=== PATIENT | male | born 1955 | race Caucasian/White ===

== ENCOUNTER 2019-01-13 09:48 | Inpatient (IN) ==
[~2019-01-13 09:48] MED LIST: ENOXAPARIN 40 MG/0.4 ML SYRINGE SQ SCH
[2019-01-13] MEDS ORDERED: IPRATROPIUM/ALBUTEROL 3 ML AMPUL.NEB NEB ONE (09:50)
[2019-01-13] MEDS ORDERED: 0.9 % SODIUM CHLORIDE 1,000 ML IV ONE ×2 (10:01→10:34)
--- NOTE | 2019-01-13 10:05 | Emergency Department Note ---
SOB HPI - General Chief Complaint: Shortness of Breath/Dyspnea Stated Complaint: shortness of breath Time Seen by Provider: 01/13/19 10:01 Source: patient Mode of arrival: ambulatory Limitations: no limitations - History of Present Illness 63-year-old male with a 3-4-day history of shortness of breath cough congestion. He does have a history of COPD as well as heart problems and is not on home oxygen. When he came in today his oxygen saturations were in the 80s and he was given a DuoNeb treatment which did help. Denies nausea vomiting diarrhea but he does have a fever. He did not get a flu shot - Related Data Home Medications Medication Instructions Recorded Confirmed Albuterol Sulfate [Proair Hfa] 8.5 gm IH QDAY PRN 01/13/19 01/13/19 Aspirin [Justin Chewable Aspirin] 81 mg PO QDAY 01/13/19 01/13/19 Atorvastatin [Lipitor] 40 mg PO ONCE 01/13/19 01/13/19 Clindamycin [Cleocin] 300 mg PO QID 01/13/19 01/13/19 Lisinopril [Zestril] 20 mg PO QDAY 01/13/19 01/13/19 Metoprolol Succinate [Kapspargo 25 mg PO QDAY 01/13/19 01/13/19 Sprinkle] Umeclidinium [place] [Incruse 62.5 mcg IH QDAY 01/13/19 01/13/19 Ellipta] Allergies Allergy/AdvReac Type Severity Reaction Status Date / Time Penicillins Allergy Severe Anaphylaxis Verified 01/02/19 12:25 Iodinated Contrast- Oral and Allergy Intermediate Irritable Verified 01/02/19 12:25 IV Dye prednisone Allergy Agitated Verified 01/13/19 09:51 Review of Systems All systems ED: reviewed and negative except as stated. Past Medical History - Past Medical History Attestation: Yes: The following information was validated with the patient. Medical history: Reports: cancer (Non-Hodgkin's lymphoma), CHF, coronary artery disease, hyperlipidemia, hypertension Surgical history ED: Reports: coronary bypass (CABG), herniorrhaphy, pacemaker/AICD - Social History smoking status: Never smoker Alcohol use: Reports: None Drug use: Reports: none Physical Exam Some respiratory distress/failure requiring oxygen. Normocephalic atraumatic. Conjunctive are clear sclerae nonicteric. No nasal discharge but some audible congestion. Oropharynx is pink and moist. Neck is supple without lymphadenopathy thyromegaly or carotid bruit. Heart is regular rate and rhythm no murmur appreciated. Lungs are clear to auscultation on the left but the right has rales and rhonchi especially the upper masters. Notable end expiratory wheeze. Patient cannot speak in full sentences. Wearing mask oxygen. Abdomen soft nontender nondistended. Normoactive bowel sounds. No pedal edema. +2 radial pulse. Alert oriented Limitations: no limitations Course Vital Signs Temperature 101.0 F H 01/13/19 09:48 Pulse Rate 99 H 01/13/19 09:48 Respiratory Rate 30 H 01/13/19 09:48 Blood Pressure 130/79 01/13/19 09:48 Pulse Oximetry (%) 80 L 01/13/19 09:48 Temperature 101.0 F H 01/13/19 09:48 Pulse Rate 81 01/13/19 10:46 Respiratory Rate 32 H 01/13/19 10:46 Blood Pressure 118/72 01/13/19 10:46 Pulse Oximetry (%) 97 01/13/19 10:46 Shortness of Breath/Dyspnea - Lab Data Lab results reviewed: Yes I reviewed the patient's lab results. Result diagrams: 01/13/19 10:01 01/13/19 10:01 Lab Results 01/13/19 01/13/19 01/13/19 Range/Units 10:01 10:01 10:01 WBC 5.9 (4.5-11.0) K/mcL RBC 4.38 L (4.50-5.90) M/mcL Hgb 13.4 L (13.5-16.5) g/dL Hct 40.5 L (41.0-55.0) % MCV 92.6 (80.0-100.0) fL MCH 30.7 (26.0-34.0) pg MCHC 33.1 (31.0-36.0) g/dL RDW 14.4 (11.5-14.5) % Plt Count 163 (140-440) K/mcL MPV 8.0 (7.4-10.4) fL Gran % 72.4 (38.0-78.0) % Lymph % (Auto) 20.4 (15.5-49.0) % [place] % (Auto) 6.9 (1.0-12.0) % Eos % (Auto) 0.1 (0.0-7.0) % Baso % (Auto) 0.2 (0.0-2.0) % Gran # 4.2 (1.8-8.0) K/mcL Lymph # (Auto) 1.2 L (1.5-4.8) K/mcL [place] # (Auto) 0.4 (0.1-0.9) K/mcL Eos # (Auto) 0 (0.0-0.7) K/mcL Baso # (Auto) 0 (0.0-0.3) K/mcL D-Dimer (0.00-0.40) ug/ml VBG Lactic Acid 1.0 (0.5-2.0) mmol/L Sodium 132 L (133-145) mmol/L Potassium 4.2 (3.3-5.1) mmol/L Chloride 95 L (96-108) mmol/L Carbon Dioxide 21 L (22-30) mmol/L Anion Gap 16.0 (8-16) BUN 16 (8-23) mg/dl Creatinine 1.2 (0.7-1.2) mg/dl GFR Calculation 65 Glucose 132 H (70-105) mg/dL Calcium 8.4 L (8.6-10.4) mg/dl Magnesium 1.7 (1.6-2.5) mg/dL Total Bilirubin 0.5 (0.0-1.0) mg/dL AST 26 (0-37) U/l ALT 15 (0-40) U/l Alkaline Phosphatase 65 (39-117) U/L Troponin T (0-0.03) ng/ml NT-Pro-B Natriuret Pep 804.3 H (0-125) pg/ml Total Protein 7.8 (5.9-8.4) gm/dL Albumin 4.1 (3.2-5.2) gm/dL Globulin 3.7 (2.2-3.7) gm/dL Albumin/Globulin Ratio 1.1 (1.0-2.3) Lipase 32 (7-60) U/L Procalcitonin (<0.10) ng/mL 01/13/19 01/13/19 01/13/19 Range/Units 10:01 10:01 10:02 WBC (4.5-11.0) K/mcL RBC (4.50-5.90) M/mcL Hgb (13.5-16.5) g/dL Hct (41.0-55.0) % MCV (80.0-100.0) fL MCH (26.0-34.0) pg MCHC (31.0-36.0) g/dL RDW (11.5-14.5) % Plt Count (140-440) K/mcL MPV (7.4-10.4) fL Gran % (38.0-78.0) % Lymph % (Auto) (15.5-49.0) % [place] % (Auto) (1.0-12.0) % Eos % (Auto) (0.0-7.0) % Baso % (Auto) (0.0-2.0) % Gran # (1.8-8.0) K/mcL Lymph # (Auto) (1.5-4.8) K/mcL [place] # (Auto) (0.1-0.9) K/mcL Eos # (Auto) (0.0-0.7) K/mcL Baso # (Auto) (0.0-0.3) K/mcL D-Dimer 3.88 H (0.00-0.40) ug/ml VBG Lactic Acid (0.5-2.0) mmol/L Sodium (133-145) mmol/L Potassium (3.3-5.1) mmol/L Chloride (96-108) mmol/L Carbon Dioxide (22-30) mmol/L Anion Gap (8-16) BUN (8-23) mg/dl Creatinine (0.7-1.2) mg/dl GFR Calculation Glucose (70-105) mg/dL Calcium (8.6-10.4) mg/dl Magnesium (1.6-2.5) mg/dL Total Bilirubin (0.0-1.0) mg/dL AST (0-37) U/l ALT (0-40) U/l Alkaline Phosphatase (39-117) U/L Troponin T < 0.01 (0-0.03) ng/ml NT-Pro-B Natriuret Pep (0-125) pg/ml Total Protein (5.9-8.4) gm/dL Albumin (3.2-5.2) gm/dL Globulin (2.2-3.7) gm/dL Albumin/Globulin Ratio (1.0-2.3) Lipase (7-60) U/L Procalcitonin < 0.10 (<0.10) ng/mL ABG shows pH 7.42 PCO2 of 36 PO2 65 on 4 L mask flu swab negative - Radiology Data Radiology results reviewed: Yes I reviewed the patient's radiology results. Chest x-ray shows diffuse hazy infiltrate-concern for viral pneumonia versus CHF - EKG Data EKG attestation: Yes I reviewed and interpreted this EKG. EKG results narrative: EKG shows a rate of 91 with a paced rhythm Disposition Pt seen by [facility]/PA only: No Clinical Impression: Acute exacerbation of chronic obstructive airways disease, Viral pneumonia Respiratory failure with hypoxia Qualifiers: Chronicity: acute Qualified Code(s): J96.01 - Acute respiratory failure with hypoxia Summary: Start workup with laboratory EKG chest x-ray. EKG is unrevealing showing paced rhythm without evidence of ischemia. Treatment started with DuoNeb and IV fluids He had a second treatment with albuterol as he continued to have significant wheezing and rales Influenza swab was negative so I ordered the respiratory panel. I do not necessarily believe the swab as he has symptoms it could clearly be associated with classic flu. I will go ahead and start Tamiflu presumptively; they can stop this if the panel is negative He was doing better after the second dose of albuterol but he still required oxygen. I discussed the case with Dr. Michael, our hospitalist, who agreed to accept patient for further care and evaluation in the hospital Disposition: Xfer As Inpt ([facility]) Condition: Serious Referrals: Sheree Knapp MD [Primary Care Provider] -
[2019-01-13] MEDS ORDERED: ALBUTEROL SULFATE 2.5 MG/3 ML NEBULIZER NEB ONE ×2 (10:33→11:29)
[2019-01-13 10:47] LABS: Basophils # (Auto) 0 K/mcL (0.0-0.3); Basophils % (Auto) 0.2 % (0.0-2.0); Eosinophils # (Auto) 0 K/mcL (0.0-0.7); Eosinophils % (Auto) 0.1 % (0.0-7.0); Granulocytes % (Auto) 72.4 % (38.0-78.0); Lymphocytes # (Auto) 1.2 K/mcL (1.5-4.8); Lymphocytes % (Auto) 20.4 % (15.5-49.0); Mean Cell Volume 92.6 fL (80.0-100.0); Mean Corpuscular HGB Conc 33.1 g/dL (31.0-36.0); Monocytes # (Auto) 0.4 K/mcL (0.1-0.9); Monocytes % (Auto) 6.9 % (1.0-12.0); Platelet Count 163 K/mcL (140-440); RBC 4.38 M/mcL (4.50-5.90); Red Cell Distribution Width 14.4 % (11.5-14.5)
[2019-01-13 10:53] LABS: proBNP 804.3 pg/ml (0-125)
[2019-01-13 10:58] LABS: ALT/SGPT 15 U/l (0-40); Albumin 4.1 gm/dL (3.2-5.2); Albumin/Globulin Ratio 1.1 (1.0-2.3); Alkaline Phosphatase 65 U/L (39-117); Blood Urea Nitrogen 16 mg/dl (8-23); Lipase 32 U/L (7-60)
[2019-01-13] MEDS ORDERED: OSELTAMIVIR PHOSPHATE 75 MG CAPSULE PO ONE (11:14)
--- NOTE | 2019-01-13 11:23 | XRay Report ---
CLINICAL INFORMATION: SOB COMPARISON: 10/30/2018 FINDINGS: Implantable cardioverter defibrillator remains in stable satisfactory position. The heart is mildly enlarged - accentuated by rightward rotation. Sternotomy changes are again noted. Mediastinum is unremarkable. The pulmonary vessels distended are currently distended and there is mild interstitial disease throughout both lungs. This may represent pulmonary edema or, less likely, inflammation. No effusions. IMPRESSION: Probable mild CHF. Consider correlation with BNP and other supportive clinical data. Please consider diuretic trial repeat and two view chest x-ray Interpreted and Authenticated by: Patrice Beltran 01/13/19
[2019-01-13] MEDS ORDERED: FUROSEMIDE 40 MG/4 ML VIAL IV ONE (13:50)
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
[2019-01-13] MEDS ORDERED: methylPREDNISolone SOD SUCC 125 MG/2 ML VIAL IV ONE (15:05)
[2019-01-13] MEDS ORDERED: ACETAMINOPHEN 325 MG TABLET PO PRN (15:06)
[2019-01-13] MEDS ORDERED: MAGNESIUM SULFATE 2 GM/50 ML BAG IV PRN (15:06)
[2019-01-13] MEDS ORDERED: IPRATROPIUM/ALBUTEROL 3 ML AMPUL.NEB NEB PRN (15:06)
[2019-01-13] MEDS ORDERED: POTASSIUM CHLORIDE 20 MEQ TABLET PO PRN ×2 (15:06)
[2019-01-13] MEDS ORDERED: ONDANSETRON 4 MG/2 ML VIAL IV PRN (15:06)
[2019-01-13] MEDS ORDERED: POTASSIUM CHLORIDE 40 MEQ in DEXTROSE 5% IN WATER 500 ML IV PRN (15:06)
[2019-01-13] MEDS ORDERED: LACTULOSE 20 GM/30 ML ORAL.SOL PO PRN (15:06)
[2019-01-13] MEDS ORDERED: POLYETHYLENE GLYCOL 3350 17 GM PACKET PO PRN (15:06)
[2019-01-13] MEDS ORDERED: 0.9 % SODIUM CHLORIDE 1,000 ML IV SCH (15:15)
[2019-01-13] MEDS: cefTRIAXone 2 GM in DEXTROSE 5% IN WATER 50 ML IV SCH (16:17)
[2019-01-13] MEDS: AZITHROMYCIN 500 MG in DEXTROSE 5% IN WATER 250 ML IV SCH (16:18)
[2019-01-13] MEDS ORDERED: ENOXAPARIN 100 MG/ML SYRINGE SQ ONE (16:34)
[2019-01-13] MEDS: IPRATROPIUM/ALBUTEROL 3 ML AMPUL.NEB NEB SCH (18:42)
[2019-01-13] MEDS: 0.9 % SODIUM CHLORIDE 10 ML SYRINGE IV SCH (20:51)
[2019-01-13] MEDS: methylPREDNISolone SOD SUCC 125 MG/2 ML VIAL IV SCH (20:51)
[2019-01-13] MEDS: DOCUSATE SODIUM 100 MG CAPSULE PO SCH ×2 (20:51→21:08)
[2019-01-13] MEDS ORDERED: SENNOSIDES 1 TABLET PO PRN (21:00)
[2019-01-13] MEDS ORDERED: ATORVASTATIN 20 MG TABLET PO SCH (21:00)
[2019-01-14] MEDS: IPRATROPIUM/ALBUTEROL 3 ML AMPUL.NEB NEB SCH ×3 (01:15→19:02)
[2019-01-14] MEDS: methylPREDNISolone SOD SUCC 125 MG/2 ML VIAL IV SCH ×3 (05:17→21:08)
[2019-01-14] MEDS: 0.9 % SODIUM CHLORIDE 10 ML SYRINGE IV SCH ×3 (05:18→21:09)
[2019-01-14 05:44] LABS: Basophils # (Auto) 0 K/mcL (0.0-0.3); Basophils % (Auto) 0.1 % (0.0-2.0); Eosinophils # (Auto) 0 K/mcL (0.0-0.7); Eosinophils % (Auto) 0 % (0.0-7.0); Granulocytes % (Auto) 67.7 % (38.0-78.0); Lymphocytes # (Auto) 0.9 K/mcL (1.5-4.8); Lymphocytes % (Auto) 26.4 % (15.5-49.0); Mean Cell Volume 93.5 fL (80.0-100.0); Mean Corpuscular HGB Conc 33.1 g/dL (31.0-36.0); Monocytes # (Auto) 0.2 K/mcL (0.1-0.9); Monocytes % (Auto) 5.8 % (1.0-12.0); Platelet Count 156 K/mcL (140-440); RBC 4.23 M/mcL (4.50-5.90); Red Cell Distribution Width 14.4 % (11.5-14.5)
[2019-01-14 05:50] LABS: ALT/SGPT 12 U/l (0-40); Albumin 3.5 gm/dL (3.2-5.2); Alkaline Phosphatase 54 U/L (39-117); Bilirubin,Direct < 0.2 mg/dL (0.0-0.3); Blood Urea Nitrogen 17 mg/dl (8-23); Gamma Glutamyl Transpeptidase 21 U/L (8-61); Uric Acid 4.9 mg/dL (2.5-8.0)
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
--- NOTE | 2019-01-14 08:48 | Cat Scan Report ---
CLINICAL INFORMATION: Dyspnea COMPARISON: Chest CT 03/23/2012 TECHNIQUE: 0.625 mm axial slices were obtained from the lung apices through the bases without intravenous contrast. 2.5 mm Sagittal, coronal and axial reformatted images were processed and reviewed at bone, lung and soft tissue windows. 7 mm axial MIP images were also reconstructed to optimize pulmonary nodule detection.The exam was performed using radiation dose optimization techniques including, but not limited to, automated exposure control, adjustment of the mA and/or kV according to patient size and use of iterative reconstruction technique. FINDINGS: Pulmonary parenchymal windows show chronic bronchitis with elevated lung volumes and slight dilatation/wall thickening of the bronchi. No bullae identified. There are moderate groundglass and tree-in-bud infiltrate in the right upper, middle and lower lobes. Smaller alveolar infiltrates are noted in the superior segment of the left lower lobe and the anterior/posterior segments of the left upper lobe. A 6 mm nodule in the anterior segment left upper lobe (image 50) is unchanged 2012 CT. No new or enlarging nodules. No pleural effusions. Mediastinal windows show the heart is mildly enlarged with very heavy calcific plaque in the coronary arteries. Sternotomy changes noted. Pacemaker and leads in satisfactory position. The noncontrasted pulmonary arteries and thoracic aorta are normal in contour and caliber. A few borderline enlarged lymph nodes in lower right paratracheal and pericarinal region, ranging up to 12 mm, are almost certainly benign reactive lymph nodes. The esophagus is grossly normal. Thyroid is unremarkable. Bone windows show mild degenerative disc disease throughout the thoracic spine. Images through the superior abdomen show a small portion of a large infrarenal abdominal aortic aneurysm. A 18 mm fat-containing lesion in the superior pole of the right kidney should represent a benign angiomyolipoma. IMPRESSION: 1. Moderate patchy tree-in-bud and groundglass infiltrates in the right upper, middle and lower lobes and also the superior segment left lower and anterior/posterior segments of the left upper lobes. Primary diagnostic considerations include aspiration or infection. Consider: formal swallowing function assessment 2. Mild underlying bronchitis 3. The superior aspect of a significant infrarenal abdominal aortic aneurysm is incompletely imaged. Suggest: Abdominal aortic ultrasound Interpreted and Authenticated by: Patrice Beltran 01/14/19
[2019-01-14] MEDS ORDERED: LISINOPRIL 20 MG TABLET PO SCH (09:00)
[2019-01-14] MEDS ORDERED: UMECLIDINIUM BROMIDE 62.5 MCG INH SCH (09:00)
[2019-01-14] MEDS ORDERED: METOPROLOL SUCCINATE 25 MG TAB.XL.24H PO SCH (09:00)
[2019-01-14] MEDS ORDERED: ASPIRIN 81 MG TAB.CHEW PO SCH (09:00)
[2019-01-14] MEDS ORDERED: ENOXAPARIN 40 MG/0.4 ML SYRINGE SQ SCH (09:00)
[2019-01-14] MEDS: DOCUSATE SODIUM 100 MG CAPSULE PO SCH ×2 (09:44→21:08)
[2019-01-14] MEDS: AZITHROMYCIN 500 MG in DEXTROSE 5% IN WATER 250 ML IV SCH (09:44)
[2019-01-14] MEDS: cefTRIAXone 2 GM in DEXTROSE 5% IN WATER 50 ML IV SCH (09:44)
[2019-01-14] MEDS ORDERED: ACETAMINOPHEN 325 MG TABLET PO PRN ×2 (10:47→13:52)
[2019-01-14] MEDS ORDERED: MAGNESIUM SULFATE 2 GM/50 ML BAG IV PRN ×2 (10:47→13:52)
[2019-01-14] MEDS ORDERED: POTASSIUM CHLORIDE 40 MEQ in DEXTROSE 5% IN WATER 500 ML IV PRN ×2 (10:47→13:52)
[2019-01-14] MEDS ORDERED: POTASSIUM CHLORIDE 20 MEQ TABLET PO PRN ×4 (10:47→13:52)
[2019-01-14] MEDS ORDERED: ONDANSETRON 4 MG/2 ML VIAL IV PRN ×2 (10:47→13:52)
[2019-01-14] MEDS ORDERED: POLYETHYLENE GLYCOL 3350 17 GM PACKET PO PRN ×2 (10:47→13:52)
[2019-01-14] MEDS ORDERED: IPRATROPIUM/ALBUTEROL 3 ML AMPUL.NEB NEB PRN ×2 (10:47→13:52)
[2019-01-14] MEDS ORDERED: LACTULOSE 20 GM/30 ML ORAL.SOL PO PRN ×2 (10:47→13:52)
[2019-01-14] MEDS ORDERED: IPRATROPIUM/ALBUTEROL 3 ML AMPUL.NEB NEB SCH (13:00)
[2019-01-14] MEDS ORDERED: 0.9 % SODIUM CHLORIDE 10 ML SYRINGE IV SCH (14:00)
[2019-01-14] MEDS ORDERED: methylPREDNISolone SOD SUCC 40 MG/ML VIAL IV SCH (14:00)
[2019-01-14] MEDS ORDERED: methylPREDNISolone SOD SUCC 125 MG/2 ML VIAL IV SCH (14:00)
--- NOTE | 2019-01-14 14:20 | Ultrasound Report ---
CLINICAL INFORMATION: Bilateral leg swelling COMPARISON: None. FINDINGS: The entire deep venous system of both lower extremities including the common femoral, superficial femoral, popliteal and paired trifurcation calf veins are easily compressible and show normal venous blood flow on color and spectral Doppler. No evidence of thrombus IMPRESSION: Negative exam - no evidence of deep vein thrombosis in either lower extremity. Interpreted and Authenticated by: Patrice Beltran 01/14/19
[2019-01-14] MEDS ORDERED: ATORVASTATIN 20 MG TABLET PO SCH (21:00)
[2019-01-14] MEDS ORDERED: DOCUSATE SODIUM 100 MG CAPSULE PO SCH (21:00)
[2019-01-14] MEDS ORDERED: SENNOSIDES 1 TABLET PO PRN ×2 (21:00)
[2019-01-14] MEDS: ATORVASTATIN 20 MG TABLET PO SCH (21:08)
[2019-01-15] MEDS: IPRATROPIUM/ALBUTEROL 3 ML AMPUL.NEB NEB SCH ×6 (00:46→23:50)
[2019-01-15] MEDS: methylPREDNISolone SOD SUCC 125 MG/2 ML VIAL IV SCH (05:49)
[2019-01-15] MEDS: 0.9 % SODIUM CHLORIDE 10 ML SYRINGE IV SCH ×3 (05:49→20:35)
[2019-01-15 06:28] LABS: Blood Urea Nitrogen 24 mg/dl (8-23)
[2019-01-15] MEDS ORDERED: OSELTAMIVIR PHOSPHATE 75 MG CAPSULE PO ONE (06:51)
--- NOTE | 2019-01-15 06:56 | Internal Med Progress Note ---
Medical - PN: Subj Patient information: Note initiated : 01/15/19 at 6:50 am Service Date, if different from initiated Date: [] Patient: William Murillo a 63 y/o M admitted on 01/13/19 for shortness of breath. Chief Complaint: [] Interval history: Mr. Murillo is a 63 year old M Worsening shortness of breath over the past 3 days. He does have baseline shortness of breath but noticed increased shortness of breath overnight 3 nights ago. He has COPD with inhalers at home but is not on home oxygen. Patient states he gets short of breath easily with exertion at home. And pollen and dust are triggers for shortness of breath. He does get short of breath on occasion when he is just sitting around the house and he attributes this to dust or pollen. Does report fever and chills. And he also reports increased productive cough of clear white sputum for the past few days. Denies chest pain He states that 3 days ago he was in his normal state during the day that night they open their windows and noticed a strong fire place smoke smell from outside. That night is when he had continued trouble with breathing. Initially was found to be hypoxic with a pulse ox of 80 on room air. His chest x-ray with some prominent pulmonary vasculature but no obvious focal infiltrate or jose edema. He has no peripheral edema. Troponin was unremarkable. Age-related proBNP unremarkable. ABG with a low PaO2 of 65 on 4 L nasal cannula, pH 7.4 with a CO2 of 36. With respiratory rates initially in the 30s now the low to mid 20s He received several DuoNeb's and heart neb but still has wheezing. He is on 3-4 L oxygen mask satting low 90s. VQ scan was done because of high d-dimer which was read as intermediate probability. Venous Doppler of the lower extremities is pending. 01/14 Slept well. No new complaints. Feeling better. Shortness of breath improving. Minimal cough. No overnight events. No acute complaints. No fever chills 01/15 Doing a little better every day. Denies cough this morning. Shortness of breath continues to improve. No acute events overnight. Review of Systems: denies headache/fever/chills/nausea/vomiting/chest or abdominal pain/diarrhea. Otherwise see above. - Constitutional Vitals: Vital Signs Temp Pulse Resp BP Pulse Ox 97.3 F 62 16 121/78 93 01/15/19 06:37 01/15/19 06:37 01/15/19 06:37 01/15/19 06:37 01/15/19 06:37 Period Temp Pulse Resp BP Sys/Sanchez Pulse Ox Last 24 Hr 97.3 F-98.2 F 61-73 16-26 110-145/70-110 91-97 Intake and Output 01/14/19 01/15/19 01/15/19 21:59 05:59 13:59 Intake Total 300 600 Output Total 275 250 Balance 25 350 Weight 105.007 kg Intake & Output: Intake & Output 01/14/19 01/15/19 01/15/19 21:59 05:59 13:59 Intake Total 300 600 Output Total 275 250 Balance 25 350 Weight 105.007 kg Intake: Oral 300 600 Output: Void Amount 275 250 Other: Meal Dinner Percent of Meal Consumed 100% Feeding Ability Independent Urine Appearance Clear Urine Color Dark Yellow Urine Odor Strong # Voids 1 Exam: General: Alert, Awake, mild respiratory distress eyes/N/T: EOMI, Head/Neck: neck supple, CV: RRR, 2/6 SM Pulm: Better aeration of lungs, no wheezing again today abd: soft, nontender, +BS x4 Ext: no clubbing/cyanosis/edema Neuro: Alert, no focal deficits, moves all extremities, Skin: warm/dry Medical - PN: Obj Da - Labs CBC & Chem 7: 01/14/19 04:05 01/15/19 04:15 Labs: Abnormal Lab Results 01/15/19 01/14/19 01/14/19 04:15 04:05 04:05 WBC 3.5 L RBC 4.23 L Hgb 13.1 L Hct 39.5 L Lymph # (Auto) 0.9 L D-Dimer Sodium 132 L Chloride Carbon Dioxide BUN 24 H Glucose 168 H 164 H Calcium 8.4 L Lactate Dehydrogenase 313 H NT-Pro-B Natriuret Pep 01/13/19 01/13/19 01/13/19 10:01 10:01 10:01 WBC RBC 4.38 L Hgb 13.4 L Hct 40.5 L Lymph # (Auto) 1.2 L D-Dimer 3.88 H Sodium 132 L Chloride 95 L Carbon Dioxide 21 L BUN Glucose 132 H Calcium 8.4 L Lactate Dehydrogenase NT-Pro-B Natriuret Pep 804.3 H Meds: Medications Acetaminophen (Tylenol) 650 mg PO Q6HP PRN PRN Reason: PAIN/FEVER > 101 Albuterol/Ipratropium (Duoneb) 3 ml NEB Q4HP PRN PRN Reason: Shortness Of Breath Albuterol/Ipratropium (Duoneb) 3 ml NEB Q6HRT [facility] Last Admin: 01/15/19 01:43 Dose: 3 ml Documented by: Aspirin (Aspirin) 81 mg PO QDAY [facility] Atorvastatin Calcium (Lipitor) 40 mg PO HS [facility] Last Admin: 01/14/19 21:08 Dose: 40 mg Documented by: Docusate Sodium (Colace) 100 mg PO BID [facility] Last Admin: 01/14/19 21:08 Dose: 100 mg Documented by: Enoxaparin Sodium (Lovenox) 40 mg SQ DAILY [facility] Ceftriaxone Sodium 2 gm/ (Dextrose) 50 mls @ 100 mls/hr IV DAILY [facility]; Protocol Potassium Chloride 40 meq/ (Dextrose) 520 mls @ 130 mls/hr IV UD PRN PRN Reason: Potassium < 3 Magnesium Sulfate (Magnesium Sulfate) 2 gm in 50 mls @ 50 mls/hr IV UD PRN PRN Reason: Magnesium </= 1.6 Lactulose (Cephulac) 10 gm PO DAILYP PRN PRN Reason: Constipation Lisinopril (Zestril) 20 mg PO QDAY [facility] Methylprednisolone Sodium Succinate (Solu-Medrol) 40 mg IV Q8 [facility] Last Admin: 01/15/19 05:49 Dose: 40 mg Documented by: Metoprolol Succinate (Toprol Xl) 25 mg PO DAILY [facility] Ondansetron HCl (Zofran) 4 mg IV Q4HP PRN PRN Reason: Nausea And Vomiting Umeclidinium [place] [Incruse Ellipta] 62.5 Mcg Inhaler 1 dose INH DAILY [facility] Polyethylene Glycol (Miralax) 17 gm PO DAILYP PRN PRN Reason: Constipation Potassium Chloride (Kdur) 40 meq PO UD PRN PRN Reason: Potssium is 3-3.5 Potassium Chloride (Kdur) 40 meq PO UD PRN PRN Reason: Potassium < 3 Senna (Senokot) 2 tab PO HSP PRN PRN Reason: Constipation Sodium Chloride (Saline Flush) 10 ml IV Q8 [facility] Last Admin: 01/15/19 05:49 Dose: 10 ml Documented by: Medical - PN: A/P - Time Spent With Patient Total time spent is greater than 50% in coordination of care (as documented) at patient's floor/unit and/or counseling patient: - Narrative A/P Narrative: A: *AECOPD (does not use home O2): -sounds like he has been running low O2 sats @home for awhile -PCT low *Influenza PNA: *Acute on chronic hypoxic respiratory failure: -currently 1L NC *CAD w/CABG: follows with Dr. Hou *iCMP (EF 25-30% on 08/2018) w/AICD: *h/o NHL: follows with Dr. Anguiano *HTN: lisinopril and toprol *Hyponatremia: resolved P: -Steroids (wean) -supp O2, attempt to wean off oxygen -RT to assess for home oxygen tomorrow morning -Nebs/RT, IS/Acapella -empiric abx d/c -cont ACEI/BB -f/u imaging outpt of incidentally found infrarenal aneurysm -ppx: lovenox Medical - PN: Qual - Stroke Symptom Onset Unknown: No - VTE Deep Vein Thrombosis/Pulmonary Embolism Present on Admission: No
[2019-01-15] MEDS ORDERED: AZITHROMYCIN 500 MG in DEXTROSE 5% IN WATER 250 ML IV SCH (09:00)
[2019-01-15] MEDS ORDERED: METOPROLOL SUCCINATE 25 MG TAB.XL.24H PO SCH (09:00)
[2019-01-15] MEDS ORDERED: LISINOPRIL 20 MG TABLET PO SCH (09:00)
[2019-01-15] MEDS ORDERED: ENOXAPARIN 40 MG/0.4 ML SYRINGE SQ SCH (09:00)
[2019-01-15] MEDS ORDERED: UMECLIDINIUM BROMIDE 62.5 MCG INH SCH (09:00)
[2019-01-15] MEDS ORDERED: ASPIRIN 81 MG TAB.CHEW PO SCH (09:00)
[2019-01-15] MEDS ORDERED: cefTRIAXone 2 GM in DEXTROSE 5% IN WATER 50 ML IV SCH ×2 (09:00)
[2019-01-15] MEDS: DOCUSATE SODIUM 100 MG CAPSULE PO SCH ×2 (09:49→20:35)
[2019-01-15] MEDS: LISINOPRIL 20 MG TABLET PO SCH (09:49)
[2019-01-15] MEDS: ASPIRIN 81 MG TAB.CHEW PO SCH (09:49)
[2019-01-15] MEDS: ENOXAPARIN 40 MG/0.4 ML SYRINGE SQ SCH (09:50)
[2019-01-15] MEDS: METOPROLOL SUCCINATE 25 MG TAB.XL.24H PO SCH (09:50)
[2019-01-15] MEDS: INSULIN LISPRO 1 UNIT/0.01 ML UNIT SQ SCH ×4 (09:51→20:35)
[2019-01-15] MEDS: predniSONE 20 MG TABLET PO SCH (16:52)
[2019-01-15] MEDS: UMECLIDINIUM BROMIDE 62.5 MCG INH SCH (16:53)
[2019-01-15] MEDS: ATORVASTATIN 20 MG TABLET PO SCH (20:32)
[2019-01-15] MEDS: OSELTAMIVIR PHOSPHATE 75 MG CAPSULE PO SCH (20:33)
[2019-01-16] MEDS: 0.9 % SODIUM CHLORIDE 10 ML SYRINGE IV SCH (04:21)
[2019-01-16] MEDS: IPRATROPIUM/ALBUTEROL 3 ML AMPUL.NEB NEB SCH (07:22)
[2019-01-16] MEDS: predniSONE 20 MG TABLET PO SCH (08:08)
--- NOTE | 2019-01-16 09:37 | Discharge Summary ---
Medical - DS: Prov Patient information: Note initiated : 01/16/19 at 9:34 am Service Date, if different from initiated Date: [] Patient: William Murillo 63 y/o M admitted on 01/13/19 for shortness of breath. Chief Complaint: [] Date of admission: 01/13/19 13:59 Discharge date: 01/16/19 Primary care physician: Sheree Knapp Consults: 01/13/19 Consult to Physician [CONS] Stat Comment: Consulting Provider: Igor Michael Reason For Exam: Physician to Consult Medical - DS: Meds - Discharge Medications Prescriptions: Oseltamivir Phosphate [Tamiflu] 75 mg PO BID #6 cap predniSONE [Prednisone] 40 mg PO DAILY #10 tab Active and Home Medications: Home Medications Albuterol Sulfate [Proair Hfa] 8.5 gm IH QDAY PRN 01/13/19 [History Confirmed 01/13/19 Last Taken 01/12/19] Aspirin [Justin Chewable Aspirin] 81 mg PO QDAY 01/13/19 [History Confirmed 01/13/19 Last Taken 01/12/19] Atorvastatin [Lipitor] 40 mg PO ONCE 01/13/19 [History Confirmed 01/13/19 Last Taken 01/12/19 21:00] Lisinopril [Zestril] 20 mg PO QDAY 01/13/19 [History Confirmed 01/13/19 Last Taken 01/12/19] Metoprolol Succinate [[place] Sprinkle] 25 mg PO QDAY 01/13/19 [History Confirmed 01/13/19 Last Taken 01/12/19] Umeclidinium [place] [Incruse Ellipta] 62.5 mcg IH QDAY 01/13/19 [History Confirmed 01/13/19 Last Taken 01/12/19] Oseltamivir Phosphate [Tamiflu] 75 mg PO BID #6 cap 01/16/19 [Rx Last Taken Unknown] predniSONE [Prednisone] 40 mg PO DAILY #10 tab 01/16/19 [Rx Last Taken Unknown] Medical - DS: Hosp Hospital course: Discharge diagnoses * Acute influenza A-clinically improved on Tamiflu. Continue additional 3 days * Acute on chronic COPD exacerbation-now off oxygen. Much improved on steroids/bronchitis. Continue additional 5 days oral steroid * Acute hypoxic respiratory failure clinically resolve and now on room air * Ischemic cardiomyopathy with EF 25% better compensated with AICD * History of hypertension remained stable on home medications including ARMIDA inhibitor/beta gregg * History of CAD follows with Dr. Clay. Continue aspirin/statin/beta gregg/ARMIDA inhibitor Brief hospital course Mr. Murillo is a 63 year old M Worsening shortness of breath over the past 3 days. He does have baseline shortness of breath but noticed increased shortness of breath overnight 3 nights ago. He has COPD with inhalers at home but is not on home oxygen. Patient states he gets short of breath easily with exertion at home. And pollen and dust are triggers for shortness of breath. He does get short of breath on occasion when he is just sitting around the house and he attributes this to dust or pollen. Does report fever and chills. And he also reports increased productive cough of clear white sputum for the past few days. Denies chest pain He states that 3 days ago he was in his normal state during the day that night they open their windows and noticed a strong fire place smoke smell from outside. That night is when he had continued trouble with breathing. Initially was found to be hypoxic with a pulse ox of 80 on room air. His chest x-ray with some prominent pulmonary vasculature but no obvious focal infiltrate or jose edema. He has no peripheral edema. Troponin was unremarkable. Age-related proBNP unremarkable. ABG with a low PaO2 of 65 on 4 L nasal cannula, pH 7.4 with a CO2 of 36. With respiratory rates initially in the 30s now the low to mid 20s He received several DuoNeb's and heart neb but still has wheezing. He is on 3-4 L oxygen mask satting low 90s. VQ scan was done because of high d-dimer which was read as intermediate probability. Venous Doppler of the lower extremities is pending. 01/14 Slept well. No new complaints. Feeling better. Shortness of breath improving. Minimal cough. No overnight events. No acute complaints. No fever chills 01/15 Doing a little better every day. Denies cough this morning. Shortness of breath continues to improve. No acute events overnight. 01/16-patient doing better. No overnight events. No concerns per staff. Now on room air and ambulating. Requesting discharge. Advised to continue Tamiflu for additional 3 days along with oral steroids. Advised follow-up primary care physician and detailed discharge instructions as below Discharge diagnosis: . - Time Spent with Patient Total time spent providing and/or coordinating discharge services: Greater than 30 minutes Medical - DS: Exam - Constitutional Vitals: Vital Signs Temp Pulse Pulse Resp BP BP Pulse Ox 01/16/19 07:30 61 16 01/16/19 07:29 93 01/16/19 07:13 97.4 F 61 18 127/82 93 01/16/19 04:00 97.5 F 77 16 126/66 92 01/15/19 23:48 97.2 F 60 18 108/63 90 01/15/19 19:46 71 18 01/15/19 19:29 61 18 92 01/15/19 19:26 97.4 F 61 18 130/72 92 01/15/19 15:20 98.2 F 65 16 125/69 92 01/15/19 13:42 68 16 01/15/19 11:07 98.2 F 62 18 118/71 91 Intake and Output 01/15/19 01/16/19 01/16/19 21:59 05:59 13:59 Intake Total 1120 650 320 Output Total 450 Balance 1120 200 320 Intake: Oral 1120 650 320 Output: Void Amount 450 Other: Meal Dinner Breakfast Percent of Meal Consumed 100% 100% Feeding Ability Independent Urine Appearance Clear Urine Color Dark Yellow Urine Odor Strong # Voids 1 Weight 225 lb 3 oz Medical - DS: Data Labs on day of discharge: Preliminary micro results at discharge 01/13/19 10:13 Blood Culture - Preliminary Blood 01/13/19 10:01 Blood Culture - Preliminary Blood Medical - DS: A/P - Patient/Caregiver Discharge Instructions Activity: increase activity as tolerated, resume usual activities as tolerated Diet: Regular Diet Additional Instructions: Follow-up PCP in 5 days I recommend primary care physician to check CBC BMP UA as a posthospital follow- up and Chest x-ray in 1 week. Continue Tamiflu for additional 3 days Continue prednisone for 5 days Continue aggressive bowel regimen to prevent constipation Continue fall precautions All meals on chair sitting upright at 90 degrees to prevent aspiration Return to ER if worsening fever chills shortness of breath, diarrhea, bleeding Review risk and side effect profile of medications including antibiotics. Side effect may include mild to severe reaction including rash, diarrhea, cdiff and even which can be prevented by close follow-up with PCP and monitoring for side effects Refrain from smoking and alcohol Continue diet and activity as advised Discussed importance of medication adherence Please review medication list with patient prior to discharge Please schedule follow-up with PCP/Providers prior to discharge and provide printouts Prescriptions: Oseltamivir Phosphate [Tamiflu] 75 mg PO BID #6 cap predniSONE [Prednisone] 40 mg PO DAILY #10 tab - Follow up Plan Follow up with: Sheree Knapp MD [Primary Care Provider] - Disposition: Home, Self-Care Prognosis: Fair Rehab Potential: Fair I certify that the patient requires SNF services: No Overall status at discharge: patient is progressing back to baseline Medical - DS: Qual - VTE Deep Vein Thrombosis/Pulmonary Embolism Present on Admission: No
[2019-01-16] MEDS: ENOXAPARIN 40 MG/0.4 ML SYRINGE SQ SCH (09:46)
[2019-01-16] MEDS: METOPROLOL SUCCINATE 25 MG TAB.XL.24H PO SCH (09:47)
[2019-01-16] MEDS: OSELTAMIVIR PHOSPHATE 75 MG CAPSULE PO SCH (09:47)
[2019-01-16] MEDS: ASPIRIN 81 MG TAB.CHEW PO SCH (09:48)
[2019-01-16] MEDS: LISINOPRIL 20 MG TABLET PO SCH (09:48)
[2019-01-16] MEDS: DOCUSATE SODIUM 100 MG CAPSULE PO SCH (09:48)
[2019-01-16] MEDS: INSULIN LISPRO 1 UNIT/0.01 ML UNIT SQ SCH (09:49)
[2019-01-16] MEDS: UMECLIDINIUM BROMIDE 62.5 MCG INH SCH (09:50)
== END 2019-01-16 12:30 | disposition home or self-care (01) | DRG 190 ==
LOC: ED 09:48 → ICU 13:59 → MEDSUR 01-14 11:43
PROVIDERS: ADMIT Internal Medicine; ATTEND Internal Medicine

== ENCOUNTER 2021-09-26 03:33 | Inpatient (IN) ==
[2021-09-26] MEDS ORDERED: methylPREDNISolone SOD SUCC 125 MG/2 ML VIAL IV ONE (03:49)
[2021-09-26] MEDS ORDERED: FUROSEMIDE 40 MG/4 ML VIAL IV ONE (03:49)
[2021-09-26] MEDS ORDERED: LEVOFLOXACIN 750 MG/150 ML BAG IV ONE (03:49)
--- NOTE | 2021-09-26 03:49 | Emergency Department Note ---
HPI General Chief complaint: Shortness of Breath/Dyspnea Stated complaint: sob Time Seen by Provider: 09/26/21 03:47 Source: patient Mode of arrival: ambulatory Limitations: no limitations History of Present Illness HPI Narrative: Narrative: The patient is a 65-year-old male who presents with shortness of breath. He reports approximately 1 to 2-month history of being treated with multiple different outpatient antibiotics as well as albuterol. He denies any chest pain or lower extremity swelling or hemoptysis. He does report a significant past medical history of coronary artery disease ultimately with surgical treatment with CABG. He reports he is received 2 doses of the [employer] vaccine. He states he is allergic to any IV contrast. Related Data Home Medications Medication Instructions Recorded Confirmed aspirin 81 mg chewable tablet 81 mg PO QDAY 01/13/19 10/30/20 atorvastatin 40 mg tablet 40 mg PO ONCE 01/13/19 10/30/20 metoprolol succinate 25 mg capsule 25 mg PO QDAY 01/13/19 10/30/20 sprinkle, ext. release 24 hr albuterol sulfate 2.5 mg INHALATION TID ml 06/04/19 10/30/20 albuterol sulfate 90 mcg/actuation 2 puff INHALATION QID 06/04/19 10/30/20 aerosol inhaler (ProAir HFA) lisinopril 40 mg tablet 40 mg PO QDAY 06/04/19 10/30/20 umeclidinium 62.5 mcg-vilanterol 1 inh INHALATION Q24H 06/04/19 10/30/20 25 mcg/actuation powdr for inhalation (Anoro Ellipta) allerflex PO QDAY 07/28/20 10/30/20 Allergies Allergy/AdvReac Type Severity Reaction Status Date / Time Penicillins Allergy Severe Anaphylaxis Verified 09/26/21 03:39 Iodinated Contrast Media AdvReac Mild Irritable Verified 09/26/21 03:39 [Iodinated Contrast- Oral and IV Dye] prednisone AdvReac Mild Agitated Verified 09/26/21 03:39 Review of Systems ROS ROS Narrative: Narrative: All systems ED: reviewed and negative except as stated. [facility] Narrative Patient History Narrative: Narrative: Medical/Surgical/Family History All Active Problems (Updated 09/26/21 @ 05:50 by Henry Sandoval DO) Pneumonia (Acute) CHF (congestive heart failure) (Acute) Obstructive sleep apnea (Acute) Contusion, hip (Acute) Shoulder contusion (Acute) Elevated hemidiaphragm (Chronic) GERD (gastroesophageal reflux disease) (Chronic) Chronic atrial fibrillation (Chronic) Nonrheumatic aortic (valve) stenosis (Chronic) Non-Hodgkin lymphoma, unspecified, lymph nodes of multiple sites (Chronic) Atherosclerotic heart disease of [place]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 (Chronic) Left ventricular failure (Chronic) Shortness of breath (Chronic) Low back pain (Chronic) CAD (coronary artery disease) (Chronic) Umbilical hernia (Chronic) Erectile dysfunction (Chronic) Obesity (Chronic) Hyperlipidemia (Chronic) Smoking (Chronic) Hypertension (Chronic) COPD (chronic obstructive pulmonary disease) (Chronic) Finger laceration (Acute) Crush injury (Acute) Acute exacerbation of chronic obstructive airways disease (Acute) Viral pneumonia (Acute) Respiratory failure with hypoxia (Acute) Medical History (Updated 09/26/21 @ 05:50 by Henry Sandoval DO) Atherosclerotic heart disease of [place]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 CAD (coronary artery disease) Chronic atrial fibrillation COPD (chronic obstructive pulmonary disease) Elevated hemidiaphragm Right Erectile dysfunction Hyperlipidemia Hypertension Left ventricular failure Low back pain Non-Hodgkin lymphoma, unspecified, lymph nodes of multiple sites Nonrheumatic aortic (valve) stenosis Obesity Obstructive sleep apnea Shortness of breath Smoking Umbilical hernia Surgical History History of appendectomy History of coronary artery stent placement (~11/2006) History of hernia repair History of surgery (10/20/18) ICD/PLANTING MATERIAL UNLOADER /10/2018 Family History Father Skin cancer Hypertension Heart disease Diabetes Sister Hypertension Grandmother Heart disease Social History Smoking Status: Former smoker Alcohol Intake Frequency: holiday/special occasion only Exam Narrative Narrative: Narrative: General Limitations: no limitations General appearance: Present alert Head Head: Present atraumatic and normocephalic Eye Eye: Present normal appearance, PERRL and EOMI ENT ENT: Present normal exam, normal oropharynx and mucous membranes moist Neck Neck: Present normal inspection, full ROM and trachea midline Chest Chest: Present normal inspection and symmetric chest wall rise Respiratory Respiratory: Present rales/crackles and wheezes Cardiovascular Cardiovascular: Present regular rate and normal rhythm Adbominal Abdominal: Present soft and normal bowel sounds; Absent tenderness, guarding, rebound or organomegaly Extremities Extremities: Present normal inspection and full ROM; Absent tenderness Back Back: Present normal inspection and full ROM; Absent tenderness Neurological Neurological: Present alert, oriented X3, CN II-XII intact, normal gait, motor sensory deficit and reflexes normal Psychiatric Psychiatric: Present normal affect Skin Skin: Present warm (WNL); Absent rash Course Course Course Narrative: EKG shows a rate of 97, LA interval of 140, QRS 129, QTc 480, ventricular paced complexes, no STEMI, nonspecific EKG. Work-up is consistent with pneumonia. Patient received IV antibiotics in the emergency department. He has hypoxic. I spoke with the hospitalist, dr. gonzalez, who has agreed to admit this patient. Vital Signs Vital signs: Vital Signs Temperature 97.9 F 09/26/21 03:34 Pulse Rate 104 H 09/26/21 03:34 Respiratory Rate 24 H 09/26/21 03:34 Blood Pressure 177/99 09/26/21 03:34 Pulse Oximetry (%) 87 L 09/26/21 03:34 Temperature 97.9 F 09/26/21 03:34 Pulse Rate 118 H 09/26/21 04:53 Respiratory Rate 20 09/26/21 04:53 Blood Pressure 119/92 09/26/21 04:53 Pulse Oximetry (%) 91 09/26/21 04:53 MDM MDM Narrative Medical decision making narrative: Narrative: Lab Data Result diagrams: 09/26/21 04:00 Labs: Lab Results 09/26/21 09/26/21 09/26/21 Range/Units 04:00 04:00 04:00 WBC 9.3 (4.5-11.0) K/mcL RBC 4.65 (4.63-6.08) M/mcL Hgb 14.7 (13.7-17.5) g/dL Hct 44.2 (40.1-51.0) % POC Hct (41-55) % MCV 95.1 (80.0-100.0) fL MCH 31.6 (26.0-34.0) pg MCHC 33.3 (31.0-36.0) g/dL RDW 12.8 (11.5-14.5) % Plt Count 188 (140-440) K/mcL MPV 9.7 (7.4-10.4) fL Neut % (Auto) 64.8 (38.0-78.0) % Lymph % (Auto) 18.9 (15.5-49.0) % [place] % (Auto) 11.2 (1.0-12.0) % Eos % (Auto) 4.2 (0.0-7.0) % Baso % (Auto) 0.9 (0.0-2.0) % Lymph # (Auto) 1.76 (1.50-4.80) K/mcL [place] # (Auto) 1.04 H (0.10-0.90) K/mcL Eos # (Auto) 0.39 (0.00-0.70) K/mcL Baso # (Auto) 0.08 (0.00-0.30) K/mcL Absolute Neutrophils 6.02 (1.80-8.00) K/mcL PT 13.2 (11.9-14.5) sec INR 1.0 (0.9-1.1) APTT 30.4 (20.0-37.0) sec VBG Lactic Acid 1.6 (0.5-2.0) mmol/L POC Sodium (133-145) mEq/L POC Potassium (3.3-5.1) mEql/L POC Chloride (96-108) mEq/L POC Total CO2 (22-30) mmol/L POC BUN (6-20) mg/dL POC Creatinine (0.6-1.2) mg/dL POC Glucose (70-105) mg/dL POC WB Ioniz Calcium (1.16-1.32) mmEq/L Magnesium (1.6-2.5) mg/dL Total Creatine Kinase (24-195) U/L Troponin T (<0.03) ng/mL NT-Pro-B Natriuret Pep (<125.0) pg/mL Lipase (7-60) U/L 09/26/21 09/26/21 Range/Units 04:00 04:00 WBC (4.5-11.0) K/mcL RBC (4.63-6.08) M/mcL Hgb (13.7-17.5) g/dL Hct (40.1-51.0) % POC Hct 46 (41-55) % MCV (80.0-100.0) fL MCH (26.0-34.0) pg MCHC (31.0-36.0) g/dL RDW (11.5-14.5) % Plt Count (140-440) K/mcL MPV (7.4-10.4) fL Neut % (Auto) (38.0-78.0) % Lymph % (Auto) (15.5-49.0) % [place] % (Auto) (1.0-12.0) % Eos % (Auto) (0.0-7.0) % Baso % (Auto) (0.0-2.0) % Lymph # (Auto) (1.50-4.80) K/mcL [place] # (Auto) (0.10-0.90) K/mcL Eos # (Auto) (0.00-0.70) K/mcL Baso # (Auto) (0.00-0.30) K/mcL Absolute Neutrophils (1.80-8.00) K/mcL PT (11.9-14.5) sec INR (0.9-1.1) APTT (20.0-37.0) sec VBG Lactic Acid (0.5-2.0) mmol/L POC Sodium 136 (133-145) mEq/L POC Potassium 4.2 (3.3-5.1) mEql/L POC Chloride 100 (96-108) mEq/L POC Total CO2 24 (22-30) mmol/L POC BUN 19 (6-20) mg/dL POC Creatinine 1.2 (0.6-1.2) mg/dL POC Glucose 152 H (70-105) mg/dL POC WB Ioniz Calcium 1.16 (1.16-1.32) mmEq/L Magnesium 2.0 (1.6-2.5) mg/dL Total Creatine Kinase 407 H (24-195) U/L Troponin T < 0.01 (<0.03) ng/mL NT-Pro-B Natriuret Pep 250.5 H (<125.0) pg/mL Lipase 28 (7-60) U/L ED POC Tests ED POC Tests: SAMIRA - Influenza A Negative SAMIRA - Influenza B Negative [facility]A - SARS Antigen Negative Discharge Plan Patient/Caregiver Discharge Instructions Pt seen by KST OPERATOR/PA only: No Clinical Impression: Pneumonia, CHF (congestive heart failure) Patient Disposition: Xfer As Inpt ([facility]) Condition: Serious Follow up with: Sheree Knapp MD [Primary Care Provider] - Prescriptions: No Action albuterol sulfate [ProAir HFA] 90 mcg/actuation HFA aerosol inhaler 2 puff INHALATION QID 0RF umeclidinium 62.5 mcg-vilanterol 25 mcg/actuation powdr for inhalation 62.5-25 mcg/actuation blister with device 1 inh INHALATION Q24H 0RF lisinopril 40 mg tablet 40 mg PO QDAY 0RF albuterol sulfate 2.5 mg /3 mL (0.083 %) solution for nebulization 2.5 mg INHALATION TID 0RF fluticasone furoate [Arnuity Ellipta] 100 mcg/actuation blister with device 0RF allerflex PO QDAY 0RF rifnbcjtbia-rrzrvperb-btwltqyq [Trelegy Ellipta] 100-62.5-25 mcg blister with device 0RF atorvastatin 40 MG tablet 40 mg PO ONCE 0RF aspirin 81 MG tablet,chewable 81 mg PO QDAY 0RF metoprolol succinate 25 MG cap,sprinkle,ER 24hr dose pack 25 mg PO QDAY 0RF
[2021-09-26] MEDS ORDERED: LORazepam 2 MG/ML VIAL IV ONE (04:08)
[2021-09-26] MEDS ORDERED: ONDANSETRON 4 MG/2 ML VIAL IV ONE (04:08)
[2021-09-26 04:30] LABS: POC Blood Urea Nitrogen 19 mg/dL (6-20); POC CO2 24 mmol/L (22-30); POC Calcium, Ionized 1.16 mmEq/L (1.16-1.32); POC Chloride 100 mEq/L (96-108); POC Creatinine 1.2 mg/dL (0.6-1.2); POC Glucose, Random 152 mg/dL (70-105); POC Hematocrit 46 % (41-55); POC Potassium 4.2 mEql/L (3.3-5.1); POC Sodium 136 mEq/L (133-145)
[2021-09-26 05:02] LABS: Basophils # (Auto) 0.08 K/mcL (0.00-0.30); Basophils % (Auto) 0.9 % (0.0-2.0); Eosinophils # (Auto) 0.39 K/mcL (0.00-0.70); Eosinophils % (Auto) 4.2 % (0.0-7.0); Hematocrit 44.2 % (40.1-51.0); Hemoglobin 14.7 g/dL (13.7-17.5); Lymphocytes # (Auto) 1.76 K/mcL (1.50-4.80); Lymphocytes % (Auto) 18.9 % (15.5-49.0); Mean Cell Volume 95.1 fL (80.0-100.0); Mean Corpuscular HGB Conc 33.3 g/dL (31.0-36.0); Mean Platelet Volume 9.7 fL (7.4-10.4); Monocytes # (Auto) 1.04 K/mcL (0.10-0.90); Monocytes % (Auto) 11.2 % (1.0-12.0); Neutrophils % (Auto) 64.8 % (38.0-78.0); Platelet Count 188 K/mcL (140-440); RBC 4.65 M/mcL (4.63-6.08); Red Cell Distribution Width 12.8 % (11.5-14.5); WBC 9.3 K/mcL (4.5-11.0)
--- NOTE | 2021-09-26 05:10 | XRay Report ---
CLINICAL INFORMATION: Dyspnea COMPARISON: 09/25/2021 TECHNIQUE: Portable FINDINGS: The heart is mildly enlarged but unchanged. Implantable cardioverter defibrillator remains in stable position without evidence of complication. Sternotomy changes again noted. Mediastinum and pulmonary vessels are normal. COPD changes noted with minimal scattered scarring in the lung bases. No definite infiltrate has developed which was suspected on the previous exam. No effusions. IMPRESSION: Mild cardiomegaly with chronic bronchitis and minor bibasilar scarring. No definite infiltrate Interpreted and Authenticated by: Patrice Beltran 09/26/21
[2021-09-26 05:20] LABS: Partial Thromboplastin Time 30.4 sec (20.0-37.0); Prothrombin Time 13.2 sec (11.9-14.5)
[2021-09-26 05:24] LABS: proBNP 250.5 pg/mL (<125.0)
[2021-09-26 05:25] LABS: Creatine Kinase 407 U/L (24-195)
[2021-09-26] MEDS ORDERED: ONDANSETRON 4 MG/2 ML VIAL IV PRN ×2 (05:50→08:25)
[2021-09-26] MEDS ORDERED: ALBUTEROL SULFATE 2.5 MG/3 ML NEBULIZER NEB PRN (08:25)
[2021-09-26] MEDS ORDERED: ACETAMINOPHEN 325 MG TABLET PO PRN (08:25)
[2021-09-26] MEDS ORDERED: ZOLPIDEM 5 MG TABLET PO PRN (08:25)
--- NOTE | 2021-09-26 08:25 | Internal Med History&Physical ---
HPI History of Present Illness Patient information: Note initiated : 09/26/21 at 8:21 am Service Date, if different from initiated Date: [] Patient: William Murillo a 65 y/o M admitted on 09/26/21 for Shortness of breath. Chief Complaint: [shortness of breath] History of present illness: Mr. Murillo is a 65 year old M h/o lymphoma, CAD s/p 2 stents placement and CABGX4 , s/p pacemaker placement, CHF, COPD, essential HTN, mixed dyslipidemia, p/w 3 days history of worsening shortness of breath. Last prior similar episode was 3 week ago, and he was being treated with oral Zithromax. Over the past 3 days, he developed worsening shortness of breath. He is also experiencing productive cough with white sputum, chest pain when cough, respiratory wheezing, and dyspnea on exertion on 20 ft. Denies any fever, chills, or sweating. Denies any unintentional weight gain, orthopnea, or increasing leg swelling. Vital signs at ED presentation significant for oxygen desaturating to the 80s, tachycardia and tachypnea with HR and RR 110s and 20s, respectively. Labs significant for lack of leukocytosis with WBC 9.3. Lyly negative. BNP 250. Lactic acid 1.6. CXR showing mild cardiomegaly with chronic bronchitis and minor bibasilar scarring. No inflitrates. Constitutional Constitutional: Present weakness; Absent chills, excessive sweating, fatigue or fever(s) EENT Eyes: Absent blurry vision, change in vision, loss of vision or other visual disturbances Ears: Absent decreased hearing or tinnitus Nose, mouth and throat: Absent abnormal hearing, dry mouth, headache(s), nasal congestion or sore throat Cardiovascular Cardiovascular: Present chest pain, dyspnea and dyspnea on exertion; Absent chest pain at rest, edema, irregular heart rhythm or palpatations Respiratory Respiratory: Present cough, dyspnea, dyspnea on exertion, wheezing and excessive phlegm production Gastrointestinal Gastrointestinal: Absent abdominal pain, constipation, diarrhea, nausea or vomiting Musculoskeletal Musculoskeletal: Absent back pain, deformity, limited range of motion, muscle cramps, muscle weakness or numbness Integumentary Integumentary: Absent lesions, rash or wounds Neurological Neurological: Absent focal weakness, headache(s) or numbness Psychiatric Psychiatric: Absent anxiety, depression or hallucinations PFSH PFSH All Active Problems (Updated 09/26/21 @ 08:37 by Alireza Gage MD) Acute and chronic respiratory failure, unspecified whether with hypoxia or hypercapnia (Acute) Mixed dyslipidemia (Acute) Pacemaker (Acute) COPD exacerbation (Acute) Diastolic CHF (Acute) Pneumonia (Acute) CHF (congestive heart failure) (Acute) Obstructive sleep apnea (Acute) Contusion, hip (Acute) Shoulder contusion (Acute) Elevated hemidiaphragm (Chronic) GERD (gastroesophageal reflux disease) (Chronic) Chronic atrial fibrillation (Chronic) Nonrheumatic aortic (valve) stenosis (Chronic) Non-Hodgkin lymphoma, unspecified, lymph nodes of multiple sites (Chronic) Atherosclerotic heart disease of [place]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 (Chronic) Left ventricular failure (Chronic) Shortness of breath (Chronic) Low back pain (Chronic) CAD (coronary artery disease) (Chronic) Umbilical hernia (Chronic) Erectile dysfunction (Chronic) Obesity (Chronic) Hyperlipidemia (Chronic) Smoking (Chronic) Hypertension (Chronic) COPD (chronic obstructive pulmonary disease) (Chronic) Finger laceration (Acute) Crush injury (Acute) Acute exacerbation of chronic obstructive airways disease (Acute) Viral pneumonia (Acute) Respiratory failure with hypoxia (Acute) Medical History (Updated 09/26/21 @ 08:37 by Alireza Gage MD) Atherosclerotic heart disease of [place]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 CAD (coronary artery disease) Chronic atrial fibrillation COPD (chronic obstructive pulmonary disease) Elevated hemidiaphragm Right Erectile dysfunction Hyperlipidemia Hypertension Left ventricular failure Low back pain Non-Hodgkin lymphoma, unspecified, lymph nodes of multiple sites Nonrheumatic aortic (valve) stenosis Obesity Obstructive sleep apnea Shortness of breath Smoking Umbilical hernia Surgical History History of appendectomy History of coronary artery stent placement (~11/2006) History of hernia repair History of surgery (10/20/18) ICD/[facility] /10/2018 Family History Father Skin cancer Hypertension Heart disease Diabetes Sister Hypertension Grandmother Heart disease Social History occupational status: 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 release 24 hr albuterol sulfate 2.5 mg INHALATION TID ml 06/04/19 09/26/21 History albuterol sulfate 90 mcg/actuation 2 puff INHALATION QID 06/04/19 10/30/20 History aerosol inhaler (ProAir HFA) lisinopril 40 mg tablet 40 mg PO QDAY 06/04/19 09/26/21 History umeclidinium 62.5 mcg-vilanterol 1 inh INHALATION Q24H 06/04/19 10/30/20 History 25 mcg/actuation powdr for inhalation (Anoro Ellipta) allerflex PO QDAY 07/28/20 10/30/20 History Allergies Allergy/AdvReac Type Severity Reaction Status Date / Time Penicillins Allergy Severe Anaphylaxis Verified 09/26/21 03:39 Iodinated Contrast Media AdvReac Mild Irritable Verified 09/26/21 03:39 [Iodinated Contrast- Oral and IV Dye] prednisone AdvReac Mild Agitated Verified 09/26/21 03:39 EXAM Constitutional Vitals: Temp Pulse Resp BP Pulse Ox 36.8 C 110 H 18 136/94 90 09/26/21 08:00 09/26/21 08:00 09/26/21 08:00 09/26/21 08:00 09/26/21 08:00 General appearance: cooperative, no acute distress and obese Head Head exam: Present atraumatic and normocephalic Eye Eye exam: Present EOMI and PERRL ENT ENT exam: Present mucous membranes moist, normal exam and normal external ear exam Additional comments: Nasal cannula in place Neck Neck exam: Present normal inspection; Absent lymphadenopathy, tenderness or thyromegaly Respiratory Respiratory exam: Present decreased breath sounds and wheezes; Absent accessory muscle use or respiratory distress Cardiovascular Cardiovascular exam: Present normal rate and rhythm; Absent JVD GI/Abdominal GI/Abdominal exam: Present normal bowel sounds and soft; Absent organomegaly or tenderness Rectal Rectal exam: Present deferred Extremities Exam Extremities exam: Present full ROM, normal capillary refill and normal inspection; Absent tenderness Neurological Exam Neurological exam: Present alert, CN II-XII intact and oriented X3; Absent motor sensory deficit Psychiatric Psychiatric exam: Present normal affect and normal mood; Absent anxious or depressed Skin Skin exam: Present dry and intact DATA Data Completed and Pending Labs: Labs from last 24 hours 09/26/21 09/26/21 09/26/21 04:00 04:00 04:00 WBC RBC Hgb Hct POC Hct 46 MCV MCH MCHC RDW Plt Count MPV Neut % (Auto) Lymph % (Auto) [place] % (Auto) Eos % (Auto) Baso % (Auto) Lymph # (Auto) [place] # (Auto) Eos # (Auto) Baso # (Auto) Absolute Neutrophils PT INR APTT VBG Lactic Acid 1.6 POC Sodium 136 POC Potassium 4.2 POC Chloride 100 POC Total CO2 24 POC BUN 19 POC Creatinine 1.2 POC Glucose 152 H POC WB Ioniz Calcium 1.16 Magnesium 2.0 Total Creatine Kinase 407 H Troponin T < 0.01 NT-Pro-B Natriuret Pep 250.5 H Lipase 28 09/26/21 09/26/21 04:00 04:00 WBC 9.3 RBC 4.65 Hgb 14.7 Hct 44.2 POC Hct MCV 95.1 MCH 31.6 MCHC 33.3 RDW 12.8 Plt Count 188 MPV 9.7 Neut % (Auto) 64.8 Lymph % (Auto) 18.9 [place] % (Auto) 11.2 Eos % (Auto) 4.2 Baso % (Auto) 0.9 Lymph # (Auto) 1.76 [place] # (Auto) 1.04 H Eos # (Auto) 0.39 Baso # (Auto) 0.08 Absolute Neutrophils 6.02 PT 13.2 INR 1.0 APTT 30.4 VBG Lactic Acid POC Sodium POC Potassium POC Chloride POC Total CO2 POC BUN POC Creatinine POC Glucose POC WB Ioniz Calcium Magnesium Total Creatine Kinase Troponin T NT-Pro-B Natriuret Pep Lipase A/P Assessment and plan (1) GERD (gastroesophageal reflux disease): Status: Chronic Qualifiers: Esophagitis presence: esophagitis presence not specified Qualified Code(s): K21.9 - Gastro-esophageal reflux disease without esophagitis (2) Diastolic CHF: Status: Acute (3) CAD (coronary artery disease): Status: Chronic (4) COPD exacerbation: Status: Acute (5) Pacemaker: Status: Acute (6) Obesity: Status: Chronic (7) Hypertension: Status: Chronic (8) Mixed dyslipidemia: Status: Acute (9) Acute and chronic respiratory failure, unspecified whether with hypoxia or hypercapnia: Status: Acute Narrative A/P Narrative: Assessment and Plans: 1. COPD exacerbation: Admit to inpatient med surg, [place] test pending Supplemental oxygen therapy titrate to achieve spo2>=88% given COPD-er Prednisone Zithromax DuoNEB NEB q4hr schuduled Albuterol NEB q2hr PRN wheezing Robitussin DM PRN cough cbc w/ auto diff in the morning to trend WBC 2. Diastolic CHF, stable: LVEF 55-60% Continue Metoprolol ER Continue Lisinopril Supplemental oxygen therapy titrate to achieve spo2>=88% given COPD-er Daily weigh Intake and output 3. h/o CAD s/p CABGX4, stents X2, pacemaker: Continue Aspirin, Metoprolol ER, and statin 4. h/o GERD: Oral Protonix 5. Essential HTN: Currently normotensive: Continue Metoprolol ER and Lisinopril 6. Mixed dyslipidemia: Continue statin therapy 7. Obesity BMI 37.0: [employer] patient on life style modifications including healthy diet and regular exercise in order to lose weight GI ppx: oral PPI DVT ppx: Lovenox Code status: full Prognosis: guarded Disposition: inpatient med surg Time Spent With Patient Time: Total time spent is greater than 50% in coordination of care (as documented) at patient's floor/unit and/or counseling patient: Total time spent with greater than 50% in coordination of care (as documented) at patient's floor/unit and/or counseling patient:: Greater than 35 minutes
[2021-09-26] MEDS ORDERED: guaiFENesin/DEXTROMETHORPHAN ORAL SOL PO PRN (08:39)
[2021-09-26] MEDS ORDERED: DOCUSATE SODIUM 100 MG CAPSULE PO SCH (09:00)
[2021-09-26] MEDS: IPRATROPIUM/ALBUTEROL 3 ML AMPUL.NEB NEB SCH ×4 (10:46→23:02)
[2021-09-26] MEDS: ASPIRIN 81 MG TAB.CHEW PO SCH (11:04)
[2021-09-26] MEDS: METOPROLOL SUCCINATE 25 MG TAB.XL.24H PO SCH (11:05)
[2021-09-26] MEDS: DOCUSATE SODIUM 100 MG CAPSULE PO SCH ×2 (11:06→19:42)
[2021-09-26] MEDS: LISINOPRIL 20 MG TABLET PO SCH (11:06)
[2021-09-26] MEDS: 0.9 % SODIUM CHLORIDE 10 ML SYRINGE IV SCH ×4 (11:08→21:46)
[2021-09-26] MEDS: ENOXAPARIN 40 MG/0.4 ML SYRINGE SQ SCH (11:09)
[2021-09-26] MEDS: AZITHROMYCIN 250 MG in DEXTROSE 5% IN WATER 250 ML IV SCH (11:27)
--- NOTE | 2021-09-26 14:14 | Internal Med Progress Note ---
SUBJECTIVE Subjective Patient information: Note initiated : 09/26/21 at 2:09 pm Service Date, if different from initiated Date: [] Patient: William Murillo a 65 y/o M admitted on 09/26/21 for Shortness of breath. Chief Complaint: [] Interval history: History of present illness: Mr. Murillo is a 65 year old M h/o lymphoma, CAD s/p 2 stents placement and CABGX4 , s/p pacemaker placement, CHF, COPD, essential HTN, mixed dyslipidemia, p/w 3 days history of worsening shortness of breath. Last prior similar episode was 3 week ago, and he was being treated with oral Zithromax. Over the past 3 days, he developed worsening shortness of breath. He is also experiencing productive cough with white sputum, chest pain when cough, respiratory wheezing, and d yspnea on exertion on 20 ft. Denies any fever, chills, or sweating. Denies any unintentional weight gain, orthopnea, or increasing leg swelling. Vital signs at ED presentation significant for oxygen desaturating to the 80s, tachycardia and tachypnea with HR and RR 110s and 20s, respectively. Labs significant for lack of leukocytosis with WBC 9.3. Lyly negative. BNP 250. Lactic acid 1.6. CXR showing mild cardiomegaly with chronic bronchitis and minor bibasilar scarring. No inflitrates. 09/27 Constitutional Vitals: Vital Signs Temp Pulse Resp BP Pulse Ox 97.3 F 106 H 19 128/87 92 09/26/21 12:00 09/26/21 12:00 09/26/21 12:00 09/26/21 12:00 09/26/21 12:00 Period Temp Pulse Resp BP Sys/Sanchez Pulse Ox Last 24 Hr 97.3 F-98.2 F 79-118 18-31 118-177/80-110 87-95 Intake and Output 09/26/21 09/26/21 09/26/21 05:59 13:59 21:59 Intake Total 150 550 Output Total 250 Balance -100 550 Weight 120.202 kg 120.202 kg Patient Weight 09/27/21 05:59 Weight 120.202 kg Intake & Output: Intake & Output 09/26/21 09/26/21 09/26/21 05:59 13:59 21:59 Intake Total 150 550 Output Total 250 Balance -100 550 Weight 120.202 kg 120.202 kg Intake: IV 150 250 Zithromax 250 mg In Dextrose 5% 250 in Water 250 ml @ 250 mls/hr IV Q24H ON LICENSE OF [facility] Rx#:[id number] Oral 300 Output: Void Amount 250 Other: Meal Lunch Percent of Meal Consumed 100% Feeding Ability Independent # Voids 1 Exam: General: Alert, Awake, No acute Distress, obese Eyes/N/T: EOMI, Head/Neck: neck supple, CV: RRR, No murmurs, Pulm: decreased b/l and wheezing, Abd: soft, nontender, +BS x4 Ext: no clubbing/cyanosis/edema Neuro: Alert, no focal deficits, moves all extremities, Skin: warm/dry OBJ DATA Labs CBC & Chem 7: 09/26/21 04:00 Labs: Abnormal Lab Results 09/26/21 09/26/21 04:00 04:00 [place] # (Auto) 1.04 H POC Glucose 152 H Total Creatine Kinase 407 H NT-Pro-B Natriuret Pep 250.5 H Meds: Medications Acetaminophen (Acetaminophen 325 Mg Tablet) 650 mg PO Q6HP PRN; Protocol PRN Reason: Per Pain Protocol/Fever > 101 Albuterol Sulfate (Albuterol Sulfate 2.5 Mg/3 Ml Nebulizer) 2.5 mg NEB Q2HP PRN PRN Reason: Shortness Of Breath Albuterol/Ipratropium (Ipratropium/Albuterol 3 Ml Ampul.Neb) 3 ml NEB Q4HRT ON LICENSE OF [facility] Last Admin: 09/26/21 10:46 Dose: 3 ml Documented by: Aspirin (Aspirin 81 Mg Tab.Chew) 81 mg PO QDAY ON LICENSE OF [facility] Last Admin: 09/26/21 11:04 Dose: 81 mg Documented by: Atorvastatin Calcium (Atorvastatin 40 Mg Tablet) 40 mg PO [facility] Docusate Sodium (Docusate Sodium 100 Mg Capsule) 100 mg PO BID ON LICENSE OF [facility] Last Admin: 09/26/21 11:05 Dose: Not Given Documented by: Docusate Sodium (Docusate Sodium 100 Mg Capsule) 100 mg PO BID ON LICENSE OF [facility] Last Admin: 09/26/21 11:06 Dose: Not Given Documented by: Enoxaparin Sodium (Enoxaparin 40 Mg/0.4 Ml Syringe) 40 mg SQ DAILY ON LICENSE OF [facility] Last Admin: 09/26/21 11:09 Dose: 40 mg Documented by: Guaifenesin (Guaifenesin/Dextromethorphan Oral Oliva) 10 ml PO Q4HP PRN PRN Reason: Cough Azithromycin 250 mg/ Dextrose 250 mls @ 250 mls/hr IV Q24H ON LICENSE OF [facility]; Protocol Stop: 09/28/21 09:59 Last Infusion: 09/26/21 12:30 Dose: Infused Documented by: Lisinopril (Lisinopril 20 Mg Tablet) 40 mg PO DAILY ON LICENSE OF [facility] Last Admin: 09/26/21 11:06 Dose: 40 mg Documented by: Metoprolol Succinate (Metoprolol Succinate 25 Mg Tab.Xl.24h) 25 mg PO DAILY ON LICENSE OF [facility] Last Admin: 09/26/21 11:05 Dose: 25 mg Documented by: Ondansetron HCl (Ondansetron 4 Mg/2 Ml Vial) 4 mg IV Q6HP PRN PRN Reason: Nausea And Vomiting Ondansetron HCl (Ondansetron 4 Mg/2 Ml Vial) 4 mg IV Q6HP PRN PRN Reason: Nausea And Vomiting Pantoprazole Sodium (Pantoprazole 40 Mg Tablet) 40 mg PO HS ON LICENSE OF [facility] Prednisone (Prednisone 20 Mg Tablet) 40 mg PO [facility] Senna (Sennosides 1 Tablet) 2 tab PO HS ON LICENSE OF [facility] Senna (Sennosides 1 Tablet) 2 tab PO HS ON LICENSE OF [facility] Sodium Chloride (0.9 % Sodium Chloride 10 Ml Syringe) 10 ml IV Q8 ON LICENSE OF [facility] Last Admin: 09/26/21 13:16 Dose: 10 ml Documented by: Sodium Chloride (0.9 % Sodium Chloride 10 Ml Syringe) 10 ml IV Q8 ON LICENSE OF [facility] Last Admin: 09/26/21 13:17 Dose: Not Given Documented by: Zolpidem Tartrate (Zolpidem 5 Mg Tablet) 5 mg PO HSP PRN PRN Reason: Insomnia A/P Narrative A/P Narrative: A: *COPD exacerbation( ): *Acute on chronic hypoxic respiratory failure: -on 2-4L NC *h/o Diastolic CHF, stable: *h/o CAD s/p CABGX4, stents X2, pacemaker: Continue Aspirin, Metoprolol ER, and statin *h/o GERD: *HTN/HLD: Continue Metoprolol ER and Lisinopril *Obesity BMI 37.0: P: -Prednisone(wean)/ Zithromax -IS/Acapella, duonebs & prn nebs -Wean O2 as able -Continue Metoprolol ER /Lisinopril - -pt/ot -ppx: Lovenox / home ppi Code status: full Prognosis: guarded Time Spent With Patient Time: Total time spent is greater than 50% in coordination of care (as documented) at patient's floor/unit and/or counseling patient: QUALITY VTE Deep Vein Thrombosis/Pulmonary Embolism Present on Admission: No
[2021-09-26] MEDS: SENNOSIDES 1 TABLET PO SCH (19:42)
[2021-09-26] MEDS ORDERED: SENNOSIDES 1 TABLET PO SCH (21:00)
[2021-09-26] MEDS: PANTOPRAZOLE 40 MG TABLET PO SCH (21:46)
[2021-09-26] MEDS: ATORVASTATIN 40 MG TABLET PO SCH (21:46)
[2021-09-27] MEDS: IPRATROPIUM/ALBUTEROL 3 ML AMPUL.NEB NEB SCH ×4 (03:36→18:39)
[2021-09-27] MEDS: 0.9 % SODIUM CHLORIDE 10 ML SYRINGE IV SCH ×3 (04:01→20:36)
--- NOTE | 2021-09-27 08:32 | Internal Med Progress Note ---
SUBJECTIVE Subjective Patient information: Note initiated : 09/27/21 at 8:30 am Service Date, if different from initiated Date: [] Patient: William Murillo a 65 y/o M admitted on 09/26/21 for Shortness of breath. Chief Complaint: [] Interval history: History of present illness: Mr. Murillo is a 65 year old M h/o lymphoma, CAD s/p 2 stents placement and CABGX4 , s/p pacemaker placement, CHF, COPD, essential HTN, mixed dyslipidemia, p/w 3 days history of worsening shortness of breath. Last prior similar episode was 3 week ago, and he was being treated with oral Zithromax. Over the past 3 days, he developed worsening shortness of breath. He is also experiencing productive cough with white sputum, chest pain when cough, respiratory wheezing, and d yspnea on exertion on 20 ft. Denies any fever, chills, or sweating. Denies any unintentional weight gain, orthopnea, or increasing leg swelling. Vital signs at ED presentation significant for oxygen desaturating to the 80s, tachycardia and tachypnea with HR and RR 110s and 20s, respectively. Labs significant for lack of leukocytosis with WBC 9.3. Lyly negative. BNP 250. Lactic acid 1.6. CXR showing mild cardiomegaly with chronic bronchitis and minor bibasilar scarring. No inflitrates. 09/27 Feeling a little better today. Does have cough. Shortness of breath is seems to be improving. Review of Systems: Headache, denies fever/chills/nausea/vomiting/chest or abdominal pain/diarrhea. Otherwise see above. Constitutional Vitals: Vital Signs Temp Pulse Resp BP Pulse Ox 96.9 F L 63 18 125/74 92 09/27/21 07:01 09/27/21 07:01 09/27/21 07:01 09/27/21 07:01 09/27/21 07:01 Period Temp Pulse Resp BP Sys/Sanchez Pulse Ox Last 24 Hr 96.9 F-98.8 F 60-109 18-24 117-143/73-91 87-96 Intake and Output 09/26/21 09/27/21 09/27/21 21:59 05:59 13:59 Intake Total 2250 Output Total 200 275 Balance 2049 - Weight 120.315 kg Intake & Output: Intake & Output 09/26/21 09/27/21 09/27/21 21:59 05:59 13:59 Intake Total 2250 Output Total 200 275 Balance 2049 - Weight 120.315 kg Intake: Oral 2250 Output: Void Amount 200 275 Other: Meal Dinner Percent of Meal Consumed 100% Feeding Ability Independent Urine Appearance Clear Urine Color Bright Yellow Stool Size Small Stool Consistency Normal for Patient # Voids 2 2 Exam: General: Alert, Awake, No acute Distress, obese Eyes/N/T: EOMI, Head/Neck: neck supple, CV: RRR, No murmurs, Pulm: decreased b/l and wheezing b/l, Abd: soft, nontender, +BS x4 Ext: no clubbing/cyanosis, 1-2+ b/l LE edema R>L Neuro: Alert, no focal deficits, moves all extremities, Skin: warm/dry OBJ DATA Labs CBC & Chem 7: 09/26/21 04:00 09/27/21 09:26 Labs: Abnormal Lab Results 09/26/21 09/26/21 04:00 04:00 [place] # (Auto) 1.04 H POC Glucose 152 H Total Creatine Kinase 407 H NT-Pro-B Natriuret Pep 250.5 H Meds: Medications Acetaminophen (Acetaminophen 325 Mg Tablet) 650 mg PO Q6HP PRN; Protocol PRN Reason: Per Pain Protocol/Fever > 101 Albuterol Sulfate (Albuterol Sulfate 2.5 Mg/3 Ml Nebulizer) 2.5 mg NEB Q2HP PRN PRN Reason: Shortness Of Breath Albuterol/Ipratropium (Ipratropium/Albuterol 3 Ml Ampul.Neb) 3 ml NEB Q4HRT [facility] Last Admin: 09/27/21 06:54 Dose: 3 ml Documented by: Aspirin (Aspirin 81 Mg Tab.Chew) 81 mg PO QDAY [facility] Last Admin: 09/26/21 11:04 Dose: 81 mg Documented by: Atorvastatin Calcium (Atorvastatin 40 Mg Tablet) 40 mg PO HS [facility] Last Admin: 09/26/21 21:46 Dose: 40 mg Documented by: Docusate Sodium (Docusate Sodium 100 Mg Capsule) 100 mg PO BID [facility] Last Admin: 09/26/21 19:42 Dose: Not Given Documented by: Enoxaparin Sodium (Enoxaparin 40 Mg/0.4 Ml Syringe) 40 mg SQ DAILY [facility] Last Admin: 09/26/21 11:09 Dose: 40 mg Documented by: Guaifenesin (Guaifenesin/Dextromethorphan Oral Oliva) 10 ml PO Q4HP PRN PRN Reason: Cough Last Admin: 09/26/21 19:41 Dose: 10 ml Documented by: Azithromycin 250 mg/ Dextrose 250 mls @ 250 mls/hr IV Q24H [facility]; Protocol Stop: 09/28/21 09:59 Last Infusion: 09/26/21 12:30 Dose: Infused Documented by: Lisinopril (Lisinopril 20 Mg Tablet) 40 mg PO DAILY [facility] Last Admin: 09/26/21 11:06 Dose: 40 mg Documented by: Metoprolol Succinate (Metoprolol Succinate 25 Mg Tab.Xl.24h) 25 mg PO DAILY [facility] Last Admin: 09/26/21 11:05 Dose: 25 mg Documented by: Ondansetron HCl (Ondansetron 4 Mg/2 Ml Vial) 4 mg IV Q6HP PRN PRN Reason: Nausea And Vomiting Pantoprazole Sodium (Pantoprazole 40 Mg Tablet) 40 mg PO HS [facility] Last Admin: 09/26/21 21:46 Dose: 40 mg Documented by: Prednisone (Prednisone 20 Mg Tablet) 40 mg PO [facility] Senna (Sennosides 1 Tablet) 2 tab PO [facility] Last Admin: 09/26/21 19:42 Dose: Not Given Documented by: Sodium Chloride (0.9 % Sodium Chloride 10 Ml Syringe) 10 ml IV Q8 [facility] Last Admin: 09/27/21 04:01 Dose: 10 ml Documented by: Zolpidem Tartrate (Zolpidem 5 Mg Tablet) 5 mg PO HSP PRN PRN Reason: Insomnia A/P Narrative A/P Narrative: A: *COPD exacerbation(not on home O2): *Acute on chronic hypoxic respiratory failure: -on 2-3L NC *h/o Diastolic CHF, stable: *h/o CAD s/p CABGX4, stents X2, pacemaker: ASA/BB/Statinn *h/o GERD: *HTN/HLD: Continue Metoprolol ER and Lisinopril *Obesity BMI 37.0: P: -Prednisone(wean)/ Zithromax -IS/Acapella, duonebs & prn nebs -Wean O2 as able -Continue BB/Lisinopril -cont home asa/statin -pt/ot -ppx: Lovenox / home ppi Code status: full Prognosis: guarded Time Spent With Patient Time: Total time spent is greater than 50% in coordination of care (as documented) at patient's floor/unit and/or counseling patient: QUALITY VTE Deep Vein Thrombosis/Pulmonary Embolism Present on Admission: No
[2021-09-27] MEDS ORDERED: IPRATROPIUM/ALBUTEROL 3 ML AMPUL.NEB NEB PRN (09:48)
[2021-09-27] MEDS ORDERED: guaiFENesin 600 MG TAB.SR.12H PO ONE (09:48)
[2021-09-27 10:28] LABS: ALT/SGPT 29 U/L (<40); AST/SGOT 29 U/L (<40); Albumin 3.5 gm/dL (3.2-5.2); Albumin/Globulin Ratio 1.1 (1.0-2.3); Alkaline Phosphatase 65 U/L (39-117); Bilirubin,Direct 0.2 mg/dL (<0.3); Bilirubin,Total 1.1 mg/dL (0.1-1.0); Blood Urea Nitrogen 23 mg/dL (8-23); Calcium 8.8 mg/dL (8.6-10.4); Carbon Dioxide 27 mmol/L (22-30); Chloride 95 mmol/L (96-108); Globulin 3.3 gm/dL (2.2-3.7); Glomerular Filtration Rate 71; Glucose 190 mg/dL (70-105); Lactate Dehydrogenase 245 U/L (135-225); Phosphorous 3.1 mg/dL (2.5-4.5); Triglycerides 139 mg/dL (<150); Uric Acid 6.9 mg/dL (2.5-8.0)
[2021-09-27] MEDS: LISINOPRIL 20 MG TABLET PO SCH (11:15)
[2021-09-27] MEDS: DOCUSATE SODIUM 100 MG CAPSULE PO SCH ×2 (11:15→19:28)
[2021-09-27] MEDS: METOPROLOL SUCCINATE 25 MG TAB.XL.24H PO SCH (11:15)
[2021-09-27] MEDS: ASPIRIN 81 MG TAB.CHEW PO SCH (11:15)
[2021-09-27] MEDS: ENOXAPARIN 40 MG/0.4 ML SYRINGE SQ SCH (11:17)
[2021-09-27] MEDS: AZITHROMYCIN 250 MG in DEXTROSE 5% IN WATER 250 ML IV SCH (11:23)
[2021-09-27] MEDS: predniSONE 20 MG TABLET PO SCH (12:01)
[2021-09-27] MEDS ORDERED: VANCOMYCIN PER PHARMACY IV ONE (17:19)
[2021-09-27] MEDS: VANCOMYCIN 1,500 MG in 0.9 % SODIUM CHLORIDE 500 ML IV SCH (19:26)
[2021-09-27] MEDS: ATORVASTATIN 40 MG TABLET PO SCH (19:28)
[2021-09-27] MEDS: guaiFENesin 600 MG TAB.SR.12H PO SCH (19:28)
[2021-09-27] MEDS: PANTOPRAZOLE 40 MG TABLET PO SCH (19:28)
[2021-09-27] MEDS: SENNOSIDES 1 TABLET PO SCH (19:29)
[2021-09-28] MEDS: IPRATROPIUM/ALBUTEROL 3 ML AMPUL.NEB NEB SCH ×3 (02:02→17:37)
[2021-09-28] MEDS: 0.9 % SODIUM CHLORIDE 10 ML SYRINGE IV SCH ×3 (05:34→21:36)
[2021-09-28] MEDS ORDERED: VANCOMYCIN PER PHARMACY IV SCH (06:00)
[2021-09-28] MEDS: VANCOMYCIN 1,500 MG in 0.9 % SODIUM CHLORIDE 500 ML IV SCH ×2 (07:45→21:24)
[2021-09-28] MEDS: predniSONE 20 MG TABLET PO SCH (07:46)
--- NOTE | 2021-09-28 08:06 | Internal Med Progress Note ---
SUBJECTIVE Subjective Patient information: Note initiated : 09/28/21 at 8:03 am Service Date, if different from initiated Date: [] Patient: William Murillo a 65 y/o M admitted on 09/26/21 for Shortness of breath. Chief Complaint: [] Interval history: History of present illness: Mr. Murillo is a 65 year old M h/o lymphoma, CAD s/p 2 stents placement and CABGX4 , s/p pacemaker placement, CHF, COPD, essential HTN, mixed dyslipidemia, p/w 3 days history of worsening shortness of breath. Last prior similar episode was 3 week ago, and he was being treated with oral Zithromax. Over the past 3 days, he developed worsening shortness of breath. He is also experiencing productive cough with white sputum, chest pain when cough, respiratory wheezing, and d yspnea on exertion on 20 ft. Denies any fever, chills, or sweating. Denies any unintentional weight gain, orthopnea, or increasing leg swelling. Vital signs at ED presentation significant for oxygen desaturating to the 80s, tachycardia and tachypnea with HR and RR 110s and 20s, respectively. Labs significant for lack of leukocytosis with WBC 9.3. Lyly negative. BNP 250. Lactic acid 1.6. CXR showing mild cardiomegaly with chronic bronchitis and minor bibasilar scarring. No inflitrates. 09/27 Feeling a little better today. Does have cough. Shortness of breath is seems to be improving. 09/28 Again feeling better today. Feels her shortness of breath is close to baseline, he is on 2 L nasal cannula. Occasional cough. Review of Systems: Headache, denies fever/chills/nausea/vomiting/chest or abdominal pain/diarrhea. Otherwise see above. Constitutional Vitals: Vital Signs Temp Pulse Resp BP Pulse Ox 97.1 F 62 20 131/77 94 09/28/21 08:00 09/28/21 08:00 09/28/21 08:00 09/28/21 08:00 09/28/21 08:00 Period Temp Pulse Resp BP Sys/Sanchez Pulse Ox Last 24 Hr 96.9 F-98.1 F 62-83 16-22 107-131/61-77 92-94 Intake and Output 09/27/21 09/28/21 09/28/21 21:59 05:59 13:59 Intake Total 500 600 Output Total 300 Balance 200 600 Weight 120.315 kg Intake & Output: Intake & Output 09/27/21 09/28/21 09/28/21 21:59 05:59 13:59 Intake Total 500 600 Output Total 300 Balance 200 600 Weight 120.315 kg Intake: IV 500 Vancomycin 1,500 mg In Sodium 500 Chloride 0.9% 500 ml @ 333.3 mls/hr IV Q12H VREN Rx#: [id number] Oral 600 Output: Void Amount 300 Other: Urine Appearance Clear # Voids 3 4 Exam: General: Alert, Awake, No acute Distress, obese Eyes/N/T: EOMI, Head/Neck: neck supple, CV: RRR, No murmurs, Pulm: decreased b/l but better and prolonged expiratory phase, wheezing much better Abd: soft, nontender, +BS x4 Ext: no clubbing/cyanosis, 1-2+ b/l LE edema R>L Neuro: Alert, no focal deficits, moves all extremities, Skin: warm/dry OBJ DATA Labs CBC & Chem 7: 09/26/21 04:00 09/27/21 09:26 Labs: Abnormal Lab Results 09/27/21 09/27/21 09/26/21 09:26 09:26 04:00 [place] # (Auto) Sodium 132 L Chloride 95 L Glucose 190 H POC Glucose 152 H Total Bilirubin 1.1 H Lactate Dehydrogenase 245 H Total Creatine Kinase 354 H 407 H NT-Pro-B Natriuret Pep 250.5 H 09/26/21 04:00 [place] # (Auto) 1.04 H Sodium Chloride Glucose POC Glucose Total Bilirubin Lactate Dehydrogenase Total Creatine Kinase NT-Pro-B Natriuret Pep Meds: Medications Acetaminophen (Acetaminophen 325 Mg Tablet) 650 mg PO Q6HP PRN; Protocol PRN Reason: Per Pain Protocol/Fever > 101 Last Admin: 09/27/21 10:12 Dose: 650 mg Documented by: Albuterol Sulfate (Albuterol Sulfate 2.5 Mg/3 Ml Nebulizer) 2.5 mg NEB Q2HP PRN PRN Reason: Shortness Of Breath Albuterol/Ipratropium (Ipratropium/Albuterol 3 Ml Ampul.Neb) 3 ml NEB Q8H VERN Last Admin: 09/28/21 02:02 Dose: 3 ml Documented by: Albuterol/Ipratropium (Ipratropium/Albuterol 3 Ml Ampul.Neb) 3 ml NEB Q4HP PRN PRN Reason: Shortness Of Breath Aspirin (Aspirin 81 Mg Tab.Chew) 81 mg PO QDAY [facility] Last Admin: 09/27/21 11:15 Dose: 81 mg Documented by: Atorvastatin Calcium (Atorvastatin 40 Mg Tablet) 40 mg PO HS [facility] Last Admin: 09/27/21 19:28 Dose: 40 mg Documented by: Docusate Sodium (Docusate Sodium 100 Mg Capsule) 100 mg PO BID [facility] Last Admin: 09/27/21 19:28 Dose: Not Given Documented by: Enoxaparin Sodium (Enoxaparin 40 Mg/0.4 Ml Syringe) 40 mg SQ DAILY [facility] Last Admin: 09/27/21 11:17 Dose: 40 mg Documented by: Guaifenesin (Guaifenesin/Dextromethorphan Oral Oliva) 10 ml PO Q4HP PRN PRN Reason: Cough Last Admin: 09/26/21 19:41 Dose: 10 ml Documented by: Guaifenesin (Guaifenesin 600 Mg Tab.Sr.12h) 600 mg PO BID [facility] Last Admin: 09/27/21 19:28 Dose: 600 mg Documented by: Azithromycin 250 mg/ Dextrose 250 mls @ 250 mls/hr IV Q24H [facility]; Protocol Stop: 09/28/21 09:59 Last Infusion: 09/27/21 12:25 Dose: Infused Documented by: Vancomycin HCl 1,500 mg/ (Sodium Chloride) 500 mls @ 333.3 mls/hr IV Q12H [facility] Last Admin: 09/28/21 07:45 Dose: 333.3 mls/hr Documented by: Lisinopril (Lisinopril 20 Mg Tablet) 40 mg PO DAILY [facility] Last Admin: 09/27/21 11:15 Dose: 40 mg Documented by: Metoprolol Succinate (Metoprolol Succinate 25 Mg Tab.Xl.24h) 25 mg PO DAILY [facility] Last Admin: 09/27/21 11:15 Dose: 25 mg Documented by: Ondansetron HCl (Ondansetron 4 Mg/2 Ml Vial) 4 mg IV Q6HP PRN PRN Reason: Nausea And Vomiting Pantoprazole Sodium (Pantoprazole 40 Mg Tablet) 40 mg PO HS [facility] Last Admin: 09/27/21 19:28 Dose: 40 mg Documented by: Prednisone (Prednisone 20 Mg Tablet) 40 mg PO [facility] Last Admin: 09/28/21 07:46 Dose: 40 mg Documented by: Senna (Sennosides 1 Tablet) 2 tab PO [facility] Last Admin: 09/27/21 19:29 Dose: Not Given Documented by: Sodium Chloride (0.9 % Sodium Chloride 10 Ml Syringe) 10 ml IV Q8 [facility] Last Admin: 09/28/21 05:34 Dose: 10 ml Documented by: Vancomycin HCl (Vancomycin Per Pharmacy) 1 order IV [facility] [place]; Protocol Zolpidem Tartrate (Zolpidem 5 Mg Tablet) 5 mg PO HSP PRN PRN Reason: Insomnia A/P Narrative A/P Narrative: A: *COPD exacerbation(not on home O2): *Acute on chronic hypoxic respiratory failure: -on 2L NC *h/o Diastolic CHF, stable: *h/o CAD s/p CABGX4, stents X2, pacemaker: ASA/BB/Statinn *h/o GERD: *HTN/HLD: Continue Metoprolol ER and Lisinopril *Obesity BMI 37.0: *GPC in 11/13 BC: contaminant vs other P: -Prednisone(wean)/ Zithromax -IS/Acapella, duonebs & prn nebs -Wean O2 as able -repeat BC, vanco until final BC back -Continue BB/Lisinopril -cont home asa/statin -pt/ot -ppx: Lovenox / home ppi Code status: full Prognosis: guarded Time Spent With Patient Time: Total time spent is greater than 50% in coordination of care (as documented) at patient's floor/unit and/or counseling patient: QUALITY VTE Deep Vein Thrombosis/Pulmonary Embolism Present on Admission: No
[2021-09-28] MEDS: ASPIRIN 81 MG TAB.CHEW PO SCH (09:01)
[2021-09-28] MEDS: METOPROLOL SUCCINATE 25 MG TAB.XL.24H PO SCH (09:01)
[2021-09-28] MEDS: LISINOPRIL 20 MG TABLET PO SCH (09:01)
[2021-09-28] MEDS: DOCUSATE SODIUM 100 MG CAPSULE PO SCH ×2 (09:01→21:26)
[2021-09-28] MEDS: ENOXAPARIN 40 MG/0.4 ML SYRINGE SQ SCH (09:01)
[2021-09-28] MEDS: guaiFENesin 600 MG TAB.SR.12H PO SCH ×2 (09:01→21:26)
[2021-09-28] MEDS ORDERED: FUROSEMIDE 40 MG/4 ML VIAL IV ONE (09:19)
--- NOTE | 2021-09-28 10:14 | EKG ---
[facility] Test Date: 2021-09-26 Pat Name: William Murillo Department: ED Room: Gender: Male Apartment Leasing Agent: : 1955 Requested By: Henry Sandoval Order Number: [id number] Reading MD: Enrique Bloom Measurements Intervals [place] Rate: 97 P: 82 MD: 140 QRS: -75 QRSD: 129 T: 89 QT: 378 QTc: 480 Interpretive Statements Atrial-sensed ventricular-paced complexes No further analysis attempted due to paced rhythm Baseline wander in lead(s) V2 Electronically Signed On 09-28-2021 10:14:44 PST by Enrique Bloom /store/[email or web address]/[id number]/[id number].pdf
[2021-09-28] MEDS: AZITHROMYCIN 250 MG in DEXTROSE 5% IN WATER 250 ML IV SCH (10:55)
--- NOTE | 2021-09-28 10:59 | Discharge Summary ---
Discharge Provider Provider Patient information: Note initiated : 09/28/21 at 10:58 am Service Date, if different from initiated Date: [] Patient: William Murillo 65 y/o M admitted on 09/26/21 for Shortness of breath. Chief Complaint: [] Date of admission: 09/26/21 08:00 Discharge date: 09/29/21 Primary care physician: Sheree Knapp Discharge Meds Discharge Medications Home Medications aspirin 81 mg chewable tablet 81 mg PO QDAY 01/13/19 [History Confirmed 09/26/21 Last Taken 09/25/21 23:00] atorvastatin 40 mg tablet 40 mg PO HS 01/13/19 [History Confirmed 09/26/21 Last Taken 09/25/21 06:30] metoprolol succinate 25 mg capsule sprinkle, ext. release 24 hr 25 mg PO QDAY 01/13/19 [History Confirmed 09/26/21 Last Taken 09/25/21 06:30] albuterol sulfate 2.5 mg INHALATION TID ml 06/04/19 [History Confirmed 09/26/21 Last Taken 09/25/21 03:30] albuterol sulfate 90 mcg/actuation aerosol inhaler (ProAir HFA) 2 puff INHALATION QID 06/04/19 [History Confirmed 09/26/21 Last Taken 09/25/21 03:30] lisinopril 40 mg tablet 40 mg PO QDAY 06/04/19 [History Confirmed 09/26/21 Last Taken 09/25/21] umeclidinium 62.5 mcg-vilanterol 25 mcg/actuation powdr for inhalation (Anoro Ellipta) 1 inh INHALATION Q24H 06/04/19 [History Confirmed 09/26/21 Last Taken 09/25/21 05:00] prednisone 10 mg tablet 20 mg PO QDAY #1 tab 09/29/21 [Rx Last Taken Unknown] COURSE Hospital Course Hospital course: History of present illness: Mr. Murillo is a 65 year old M h/o lymphoma, CAD s/p 2 stents placement and CABGX4 , s/p pacemaker placement, CHF, COPD, essential HTN, mixed dyslipidemia, p/w 3 days history of worsening shortness of breath. Last prior similar episode was 3 week ago, and he was being treated with oral Zithromax. Over the past 3 days, he developed worsening shortness of breath. He is also experiencing productive cough with white sputum, chest pain when cough, respiratory wheezing, and dyspnea on exertion on 20 ft. Denies any fever, chills, or sweating. Denies any unintentional weight gain, orthopnea, or increasing leg swelling. Vital signs at ED presentation significant for oxygen desaturating to the 80s, tachycardia and tachypnea with HR and RR 110s and 20s, respectively. Labs significant for lack of leukocytosis with WBC 9.3. Lyly negative. BNP 250. Lactic acid 1.6. CXR showing mild cardiomegaly with chronic bronchitis and minor bibasilar scarring. No inflitrates. 09/27 Feeling a little better today. Does have cough. Shortness of breath is seems to be improving. 09/28 Again feeling better today. Feels her shortness of breath is close to baseline, he is on 2 L nasal cannula. Occasional cough. 09/29 No change overnight. Patient wanted to go home. Feels well. Qualified for home oxygen. A: *COPD exacerbation(not on home O2): *Acute on chronic hypoxic respiratory failure: *h/o Diastolic CHF, stable: *h/o CAD s/p CABGX4, stents X2, pacemaker: ASA/BB/Statinn *h/o GERD: *HTN/HLD: Continue Metoprolol ER and Lisinopril *Obesity BMI 37.0: P: -Prednisone(wean)/ Zithromax -IS/Acapella, duonebs & prn nebs -Wean O2 as able -repeat [facility] until final back Discharge diagnosis: COPD exacerbation acute on chronic respiratory failure Secondary discharge diagnosis: History of diastolic heart failure history of CAD GERD hypertension obesity Time Spent with Patient Time attestation: Total time spent providing and/or coordinating discharge services: Time spent: Greater than 30 minutes EXAM Constitutional Vitals: Temp Pulse Resp BP Pulse Ox 97.1 F 72 20 131/77 94 09/28/21 08:00 09/28/21 10:19 09/28/21 10:19 09/28/21 08:00 09/28/21 10:19 Discharge Data Data Completed and Pending Labs on day of discharge: Labs from last 24 hours 09/27/21 09:26 Total Creatine Kinase 354 H Preliminary micro results at discharge 09/26/21 04:07 Blood Culture - Preliminary Blood 09/26/21 04:00 Blood Culture - Preliminary Blood Gram positive cocci Discharge Plan Patient/Caregiver Discharge Instructions Activity: increase activity as tolerated Diet: Cardiac Prescriptions: New prednisone 10 mg tablet 20 mg PO QDAY Qty: 1 0RF Rx Instructions: Take 20 mg daily x2 days then 10 mg daily x2 days then 5 mg x 2 then stop. Continued albuterol sulfate [ProAir HFA] 90 mcg/actuation HFA aerosol inhaler 2 puff INHALATION QID 0RF umeclidinium 62.5 mcg-vilanterol 25 mcg/actuation powdr for inhalation 62.5-25 mcg/actuation blister with device 1 inh INHALATION Q24H 0RF lisinopril 40 mg tablet 40 mg PO QDAY 0RF albuterol sulfate 2.5 mg /3 mL (0.083 %) solution for nebulization 2.5 mg INHALATION TID 0RF atorvastatin 40 MG tablet 40 mg PO HS 0RF aspirin 81 MG tablet,chewable 81 mg PO QDAY 0RF metoprolol succinate 25 MG cap,sprinkle,ER 24hr dose pack 25 mg PO QDAY 0RF Follow Up Plan Follow up with: Sheree Knapp MD [Primary Care Provider] - Patient Disposition: Home, Self-Care Prognosis: Fair Overall status at discharge: patient is progressing back to baseline Discharge Orders: Discharge Order (Routine); Ordered 09/29/21 Ordered By: Igor Michael [facility] VTE Deep Vein Thrombosis/Pulmonary Embolism Present on Admission: No
[2021-09-28] MEDS: PANTOPRAZOLE 40 MG TABLET PO SCH (21:26)
[2021-09-28] MEDS: ATORVASTATIN 40 MG TABLET PO SCH (21:26)
[2021-09-28] MEDS: SENNOSIDES 1 TABLET PO SCH (21:26)
[2021-09-29] MEDS: IPRATROPIUM/ALBUTEROL 3 ML AMPUL.NEB NEB SCH ×2 (01:57→09:33)
[2021-09-29] MEDS: 0.9 % SODIUM CHLORIDE 10 ML SYRINGE IV SCH (05:06)
[2021-09-29] MEDS: predniSONE 20 MG TABLET PO SCH (08:10)
[2021-09-29] MEDS: LISINOPRIL 20 MG TABLET PO SCH (09:09)
[2021-09-29] MEDS: guaiFENesin 600 MG TAB.SR.12H PO SCH (09:09)
[2021-09-29] MEDS: METOPROLOL SUCCINATE 25 MG TAB.XL.24H PO SCH (09:09)
[2021-09-29] MEDS: ASPIRIN 81 MG TAB.CHEW PO SCH (09:09)
[2021-09-29] MEDS: DOCUSATE SODIUM 100 MG CAPSULE PO SCH (09:09)
[2021-09-29] MEDS: ENOXAPARIN 40 MG/0.4 ML SYRINGE SQ SCH (09:09)
[2021-09-29] MEDS: VANCOMYCIN 1,500 MG in 0.9 % SODIUM CHLORIDE 500 ML IV SCH (09:10)
== END 2021-09-29 11:07 | disposition home or self-care (01) | DRG 190 ==
LOC: ED 03:33 → MEDSUR 08:00
PROVIDERS: ADMIT Internal Medicine; ATTEND Internal Medicine

== ENCOUNTER 2022-07-31 12:49 | Observation (INO) ==
--- NOTE | 2022-07-31 13:00 | Emergency Department Note ---
Allergic Reaction HPI General Chief complaint: Allergic Reaction Stated complaint: Tongue Time Seen by Provider: 07/31/22 12:58 Source: patient Mode of arrival: ambulatory Limitations: no limitations History of Present Illness HPI Narrative: Narrative: Patient is a 66-year-old male who presents to the emergency department today with concern of swelling of his tongue that started approximately 2 hours prior to arrival to the emergency department. Patient indicates that he was recently diagnosed with diabetes approximately 2 months ago and started on metformin, atorvastatin, and insulin. Patient reports his blood sugar today was 104. He has been taking lisinopril 40 mg daily for many years. Patient feels that he has tingling sensation to his tongue and throat with some swelling to the tongue. He denies any difficulty breathing but reports he has difficulty in swallowing and talking due to the swelling. Patient denies any chest pain, shortness of breath, dyspnea on exertion, rash, itching, or pain. Related Data Home Medications Medication Instructions Recorded Confirmed aspirin 81 mg chewable tablet 81 mg PO QDAY 01/13/19 09/26/21 atorvastatin 40 mg tablet 40 mg PO HS 01/13/19 09/26/21 metoprolol succinate 25 mg capsule 25 mg PO QDAY 01/13/19 09/26/21 sprinkle, ext. release 24 hr albuterol sulfate 2.5 mg/3 mL 2.5 mg inhalation TID 06/04/19 09/26/21 (0.083 %) solution for nebulization albuterol sulfate 90 mcg/actuation 2 puff inhalation QID 06/04/19 09/26/21 aerosol inhaler (ProAir HFA) lisinopril 40 mg tablet 40 mg PO QDAY 06/04/19 09/26/21 blood-glucose meter (Contour Next 07/31/22 07/31/22 EZ Meter) insulin glargine 100 unit/mL (3 12 unit subcut HS 07/31/22 07/31/22 mL) subcutaneous pen (Lantus Solostar U-100 Insulin) lancets (Microlet Lancet) 07/31/22 07/31/22 metformin 1,000 mg tablet 1 tab PO DAILY 07/31/22 07/31/22 umeclidinium 62.5 mcg-vilanterol 1 puff inhalation QDAY 07/31/22 07/31/22 25 mcg/actuation powdr for inhalation (Anoro Ellipta) Allergies Allergy/AdvReac Type Severity Reaction Status Date / Time Penicillins Allergy Severe Anaphylaxis Verified 06/21/22 17:44 Iodinated Contrast Media AdvReac Mild Irritable Verified 06/21/22 17:44 [Iodinated Contrast- Oral and IV Dye] prednisone AdvReac Mild Agitated Verified 06/21/22 17:44 Review of Systems ROS ROS Narrative: Narrative: All systems ED: reviewed and negative except as stated. [facility] Narrative Patient History Narrative: Narrative: Medical/Surgical/Family History All Active Problems (Updated 07/31/22 @ 13:37 by SHIRA Marie) New onset type 2 diabetes mellitus (Acute) Obesity (BMI 35.0-39.9 without comorbidity) (Acute) Angioedema (Acute) Acute and chronic respiratory failure, unspecified whether with hypoxia or hypercapnia (Acute) Mixed dyslipidemia (Acute) Pacemaker (Acute) COPD exacerbation (Acute) Diastolic CHF (Acute) Pneumonia (Acute) CHF (congestive heart failure) (Acute) Obstructive sleep apnea (Acute) Contusion, hip (Acute) Shoulder contusion (Acute) Elevated hemidiaphragm (Chronic) GERD (gastroesophageal reflux disease) (Chronic) Chronic atrial fibrillation (Chronic) Nonrheumatic aortic (valve) stenosis (Chronic) Non-Hodgkin lymphoma, unspecified, lymph nodes of multiple sites (Chronic) Atherosclerotic heart disease of [place]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 (Chronic) Left ventricular failure (Chronic) Shortness of breath (Chronic) Low back pain (Chronic) CAD (coronary artery disease) (Chronic) Umbilical hernia (Chronic) Erectile dysfunction (Chronic) Obesity (Chronic) Hyperlipidemia (Chronic) Smoking (Chronic) Hypertension (Chronic) COPD (chronic obstructive pulmonary disease) (Chronic) Finger laceration (Acute) Crush injury (Acute) Acute exacerbation of chronic obstructive airways disease (Acute) Viral pneumonia (Acute) Respiratory failure with hypoxia (Acute) Medical History (Updated 07/31/22 @ 13:37 by SHIRA Marie) Atherosclerotic heart disease of [place]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 CAD (coronary artery disease) Chronic atrial fibrillation COPD (chronic obstructive pulmonary disease) Elevated hemidiaphragm Right Erectile dysfunction Hyperlipidemia Hypertension Left ventricular failure Low back pain Non-Hodgkin lymphoma, unspecified, lymph nodes of multiple sites Nonrheumatic aortic (valve) stenosis Obesity Obstructive sleep apnea Shortness of breath Smoking Umbilical hernia Surgical History History of appendectomy History of coronary artery stent placement (~11/2006) History of hernia repair History of surgery (10/20/18) 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 There is right-sided unilateral angioedema tongue has large amount of swelling. No lesions to the oromucosa. No swelling of the cheeks or face. No muffled voice.) Neck Neck: Present normal inspection, full ROM and trachea midline; Absent lymphadenopathy Chest Chest: Present normal inspection and symmetric chest wall rise; Absent tenderness Respiratory Respiratory: Present normal lung sounds bilaterally; Absent respiratory distress, rales/crackles, wheezes, accessory muscle use or decreased breath sounds Cardiovascular Cardiovascular: Present regular rate, normal rhythm and normal heart sounds Adbominal Abdominal: Present soft; Absent tenderness Extremities Extremities: Present normal inspection, full ROM and normal capillary refill; Absent tenderness, pedal edema, pretibial edema, joint swelling, calf tenderness, cyanosis or clubbing Back Back: Present normal inspection Neurological Neurological: Present alert and oriented X3 Psychiatric Psychiatric: Present normal affect and normal mood Skin Skin: Present warm (WNL), dry and normal color; Absent rash or hives Course Vital Signs Vital signs: Vital Signs Temperature 97.7 F 07/31/22 12:51 Pulse Rate 60 07/31/22 12:51 Respiratory Rate 18 07/31/22 12:51 Blood Pressure 182/87 07/31/22 12:51 Pulse Oximetry (%) 96 07/31/22 12:51 Oxygen Delivery Method 07/31/22 12:51 Temperature 97.1 F 07/31/22 15:29 Pulse Rate 61 07/31/22 15:29 Respiratory Rate 21 07/31/22 15:29 Blood Pressure 177/83 07/31/22 15:29 Pulse Oximetry (%) 95 07/31/22 15:29 Oxygen Delivery Method 07/31/22 15:29 Oxygen Flow Rate (L/min) 1 07/31/22 15:29 MDM MDM Narrative Medical decision making narrative: Narrative: Patient is a 66-year-old male who presents to the emergency department today with swelling of the tongue that started approximately 2 hours prior to arrival to the emergency department. Patient has unilateral angioedema on the right side of his tongue today that is relatively large amount of swelling. Patient had recently started on metformin, insulin, and statin drug with recent diagnosis of diabetes. He has been taking ARMIDA inhibitor for many years. Clinical impression of angioedema versus allergic reaction today. Patient was given a dose of epinephrine upon arrival to the emergency department and IV was started with administrating 125 mg of Solu-Medrol, 25 mg diphenhydramine, and 1 L normal saline. Patient was given the epinephrine, Solu-Medrol, diphenhydramine, and normal saline. Patient does not appear to be having any worsening decompensation at this time and airway is still maintained. There is no significant improvement of the swelling and this appears to be likely angioedema most likely related to the ARMIDA inhibitor. Patient did become slightly drowsy with the diphenhydramine and while sleeping his oxygen saturation was 88% so 2 L of O2 was applied via nasal cannula. Patient currently is not requiring any supplemental oxygen if he is awake. I was able to talk with hospitalist today, Dr. Michael regarding the patient. Dr. Michael will admit the patient to [facility] for obs ervation. Lab Data Lab results reviewed: Yes I reviewed the patient's lab results. Result diagrams: 07/31/22 13:10 07/31/22 13:10 Labs: Lab Results 07/31/22 07/31/22 07/31/22 Range/Units 13:10 13:10 13:10 WBC 8.1 (4.5-11.0) K/mcL RBC 3.54 L (4.63-6.08) M/mcL Hgb 11.9 L (13.7-17.5) g/dL Hct 34.3 L (40.1-51.0) % MCV 96.9 (80.0-100.0) fL MCH 33.6 (26.0-34.0) pg MCHC 34.7 (31.0-36.0) g/dL RDW 12.5 (11.5-14.5) % Plt Count 193 (140-440) K/mcL MPV 10.2 (8.8-12.5) fL Immature Gran % (Auto) 0.2 (0.0-0.5) % Neut % (Auto) 61.1 (38.0-78.0) % Lymph % (Auto) 29.3 (15.5-49.0) % [place] % (Auto) 7.0 (1.0-12.0) % Eos % (Auto) 1.7 (0.0-7.0) % Baso % (Auto) 0.7 (0.0-2.0) % Lymph # (Auto) 2.37 (1.50-4.80) K/mcL [place] # (Auto) 0.57 (0.10-0.90) K/mcL Eos # (Auto) 0.14 (0.00-0.70) K/mcL Baso # (Auto) 0.06 (0.00-0.30) K/mcL Immature Gran # 0.02 (0.00-0.05) K/mcl Absolute Neutrophils 4.94 (1.80-8.00) K/mcL Sodium 138 (133-145) mmol/L Potassium 3.4 (3.3-5.1) mmol/L Chloride 100 (96-108) mmol/L Carbon Dioxide 26 (22-30) mmol/L Anion Gap 12.0 (8.0-16.0) BUN 12 (8-23) mg/dL Creatinine 1.5 H (0.7-1.2) mg/dL GFR Calculation 48 Glucose 100 (70-105) mg/dL Calcium 9.1 (8.6-10.4) mg/dL Total Bilirubin 1.1 H (0.1-1.0) mg/dL AST 21 (<40) U/L ALT 13 (<40) U/L Alkaline Phosphatase 73 (39-117) U/L Total Protein 7.3 (5.9-8.4) gm/dL Albumin 3.8 (3.2-5.2) gm/dL Globulin 3.5 (2.2-3.7) gm/dL Albumin/Globulin Ratio 1.1 (1.0-2.3) Complement C4 36.7 (16.0-47.0) mg/dL Discharge Plan Patient/Caregiver Discharge Instructions Pt seen by PRODUCE ASSISTANT/PA only: No Clinical Impression: Angioedema Qualifiers: Encounter type: initial encounter Qualified Code(s): T78.3XXA - Angioneurotic edema, initial encounter Patient Disposition: Xfer As Outpt/Obs ([facility]) Condition: Fair Discharge Date/Time: 07/31/22 15:10 Discharge Location: [facility]
[2022-07-31] MEDS ORDERED: methylPREDNISolone SOD SUCC 125 MG/2 ML VIAL IV ONE (13:05)
[2022-07-31] MEDS ORDERED: EPINEPHrine 1 MG/ML AMPUL IM ONE (13:05)
[2022-07-31] MEDS ORDERED: diphenhydrAMINE 50 MG/ML VIAL IV ONE (13:05)
[2022-07-31] MEDS ORDERED: 0.9 % SODIUM CHLORIDE 1,000 ML IV ONE (13:05)
[2022-07-31 13:48] LABS: Basophils # (Auto) 0.06 K/mcL (0.00-0.30); Basophils % (Auto) 0.7 % (0.0-2.0); Eosinophils # (Auto) 0.14 K/mcL (0.00-0.70); Eosinophils % (Auto) 1.7 % (0.0-7.0); Hematocrit 34.3 % (40.1-51.0); Hemoglobin 11.9 g/dL (13.7-17.5); Lymphocytes # (Auto) 2.37 K/mcL (1.50-4.80); Lymphocytes % (Auto) 29.3 % (15.5-49.0); Mean Cell Volume 96.9 fL (80.0-100.0); Mean Corpuscular HGB Conc 34.7 g/dL (31.0-36.0); Mean Platelet Volume 10.2 fL (8.8-12.5); Monocytes # (Auto) 0.57 K/mcL (0.10-0.90); Neutrophils % (Auto) 61.1 % (38.0-78.0); Platelet Count 193 K/mcL (140-440); RBC 3.54 M/mcL (4.63-6.08); Red Cell Distribution Width 12.5 % (11.5-14.5); WBC 8.1 K/mcL (4.5-11.0)
[2022-07-31 14:03] LABS: ALT/SGPT 13 U/L (<40); AST/SGOT 21 U/L (<40); Albumin 3.8 gm/dL (3.2-5.2); Albumin/Globulin Ratio 1.1 (1.0-2.3); Alkaline Phosphatase 73 U/L (39-117); Bilirubin,Total 1.1 mg/dL (0.1-1.0); Blood Urea Nitrogen 12 mg/dL (8-23); Calcium 9.1 mg/dL (8.6-10.4); Carbon Dioxide 26 mmol/L (22-30); Chloride 100 mmol/L (96-108); Globulin 3.5 gm/dL (2.2-3.7); Glomerular Filtration Rate 48; Glucose 100 mg/dL (70-105)
--- NOTE | 2022-07-31 14:59 | Internal Med History&Physical ---
HPI History of Present Illness Patient information: Note initiated : 07/31/22 at 2:49 pm Service Date, if different from initiated Date: [] Patient: William Murillo a 66 y/o M admitted on for Tongue. Chief Complaint: [] History of present illness: Mr. Murillo is a 66 year old M Presents to the ED with tongue swelling for 4 to 5 hours. Patient states he woke up feeling fine and then not too long after breakfast he did start developing swelling of his tongue. It did not have anything unusual for breakfast. He has been on several new medications over the past couple months but those medications were metformin and insulin, no DPP-4 inhibitors. He is on lisinopril and has been on that for years and also takes a baby aspirin each day and been on that for years. Patient denies NSAID use. Patient denies any numbness or tingling in his throat or cheeks or lips but does have significant swelling in his tongue more prominent on the right right half of his tongue. He denies any shortness of breath or coughing. He denies any urticaria or pruritus. Patient was given epinephrine Solu-Medrol and Benadryl in the ED without improvement. He feels like the swelling has evolved some since first arriving in the ED. Given the lack of urticaria and pruritus and lack of response to steroids and histamine it is unlikely to be an IgE/Mast cell mediated reaction and more likely bradykinin from an ARMIDA inhibitor versus less likely acquired C1 esterase inhibitor from the lymphoma. Review of Systems: Pertinent positives as above. Denies headache/fever/chills/nausea/vomiting/chest or abdominal pain/cough/dyspnea/diarrhea. Otherwise see above. PFSH PFSH All Active Problems (Updated 07/31/22 @ 13:37 by SHIRA Marie) New onset type 2 diabetes mellitus (Acute) Obesity (BMI 35.0-39.9 without comorbidity) (Acute) Angioedema (Acute) Acute and chronic respiratory failure, unspecified whether with hypoxia or hypercapnia (Acute) Mixed dyslipidemia (Acute) Pacemaker (Acute) COPD exacerbation (Acute) Diastolic CHF (Acute) Pneumonia (Acute) CHF (congestive heart failure) (Acute) Obstructive sleep apnea (Acute) Contusion, hip (Acute) Shoulder contusion (Acute) Elevated hemidiaphragm (Chronic) GERD (gastroesophageal reflux disease) (Chronic) Chronic atrial fibrillation (Chronic) Nonrheumatic aortic (valve) stenosis (Chronic) Non-Hodgkin lymphoma, unspecified, lymph nodes of multiple sites (Chronic) Atherosclerotic heart disease of [place]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 (Chronic) Left ventricular failure (Chronic) Shortness of breath (Chronic) Low back pain (Chronic) CAD (coronary artery disease) (Chronic) Umbilical hernia (Chronic) Erectile dysfunction (Chronic) Obesity (Chronic) Hyperlipidemia (Chronic) Smoking (Chronic) Hypertension (Chronic) COPD (chronic obstructive pulmonary disease) (Chronic) Finger laceration (Acute) Crush injury (Acute) Acute exacerbation of chronic obstructive airways disease (Acute) Viral pneumonia (Acute) Respiratory failure with hypoxia (Acute) Medical History (Updated 07/31/22 @ 13:37 by SHIRA Marie) Atherosclerotic heart disease of [place]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 CAD (coronary artery disease) Chronic atrial fibrillation COPD (chronic obstructive pulmonary disease) Elevated hemidiaphragm Right Erectile dysfunction Hyperlipidemia Hypertension Left ventricular failure Low back pain Non-Hodgkin lymphoma, unspecified, lymph nodes of multiple sites Nonrheumatic aortic (valve) stenosis Obesity Obstructive sleep apnea Shortness of breath Smoking Umbilical hernia Surgical History History of appendectomy History of coronary artery stent placement (~11/2006) History of hernia repair History of surgery (10/20/18) 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 Family History Father Skin cancer Hypertension Heart disease Diabetes Sister Hypertension Grandmother Heart disease Social History occupational status: 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 release 24 hr albuterol sulfate 2.5 mg/3 mL 2.5 mg inhalation TID 06/04/19 09/26/21 History (0.083 %) solution for nebulization albuterol sulfate 90 mcg/actuation 2 puff inhalation QID 06/04/19 09/26/21 History aerosol inhaler (ProAir HFA) lisinopril 40 mg tablet 40 mg PO QDAY 06/04/19 07/31/22 History umeclidinium 62.5 mcg-vilanterol 1 inh inhalation Q24H 06/04/19 07/31/22 History 25 mcg/actuation powdr for inhalation (Anoro Ellipta) prednisone 10 mg tablet 20 mg PO QDAY #1 tab 09/29/21 Rx metformin 500 mg tablet 1,000 mg PO QDAY 07/31/22 07/31/22 History Allergies Allergy/AdvReac Type Severity Reaction Status Date / Time Penicillins Allergy Severe Anaphylaxis Verified 06/21/22 17:44 Iodinated Contrast Media AdvReac Mild Irritable Verified 06/21/22 17:44 [Iodinated Contrast- Oral and IV Dye] prednisone AdvReac Mild Agitated Verified 06/21/22 17:44 EXAM Constitutional Vitals: Temp Pulse Resp BP Pulse Ox O2 Del Method O2 Flow Rate 97.7 F 65 18 153/74 92 2 07/31/22 12:51 07/31/22 14:14 07/31/22 14:14 07/31/22 14:14 07/31/22 14:14 07/31/22 14:08 07/31/22 14:08 Exam: General: Alert, Awake, No acute Distress Eyes/N/T: EOMI, PERRL, severely enlarged tongue right half Head/Neck: neck supple, normocephalic atraumatic CV: RRR, 3/6 SM, normal s1/s2 Pulm: Clear b/l, no wheezing/rhonchi/rales Abd: soft, nontender, +BS x4 Ext: no clubbing/cyanosis/edema Neuro: Alert, no focal deficits, moves all extremities, CN 2-12 grossly intact, symmetrical strength b/l upper/lower, sensations intact b/l upper/lower, dysarthria from tongue swelling Skin: warm/dry DATA Data Completed and Pending Labs: Labs from last 24 hours 07/31/22 07/31/22 13:10 13:10 WBC 8.1 RBC 3.54 L Hgb 11.9 L Hct 34.3 L MCV 96.9 MCH 33.6 MCHC 34.7 RDW 12.5 Plt Count 193 MPV 10.2 Immature Gran % (Auto) 0.2 Neut % (Auto) 61.1 Lymph % (Auto) 29.3 Gilliam % (Auto) 7.0 Eos % (Auto) 1.7 Baso % (Auto) 0.7 Lymph # (Auto) 2.37 Gilliam # (Auto) 0.57 Eos # (Auto) 0.14 Baso # (Auto) 0.06 Immature Gran # 0.02 Absolute Neutrophils 4.94 Sodium 138 Potassium 3.4 Chloride 100 Carbon Dioxide 26 Anion Gap 12.0 BUN 12 Creatinine 1.5 H GFR Calculation 48 Glucose 100 Calcium 9.1 Total Bilirubin 1.1 H AST 21 ALT 13 Alkaline Phosphatase 73 Total Protein 7.3 Albumin 3.8 Globulin 3.5 Albumin/Globulin Ratio 1.1 A/P Narrative A/P Narrative: A: *Severe angioedema involving the tongue: Likely bradykinin mediated from ACEI -Airway intact at this time but pt feels swelling is increasing * *COPD( ): *h/o Diastolic CHF: *h/o CAD s/p CABGX4, stents X2, pacemaker: ASA/BB/Statin *h/o GERD: *HTN/HLD: *Obesity BMI 33.0: * P: -FFP -Monitor closely in the PCU -s/p glucocorticoids & antihistamine w/o response -will check c2/4 - -Continue BB, stop Lisinopril -cont home asa/statin -cont home IH's -ssi, hold metformin -ppx: lovenox Time Spent With Patient Time: Total time spent is greater than 50% in coordination of care (as documented) at patient's floor/unit and/or counseling patient:
[2022-07-31] MEDS ORDERED: 0.9 % SODIUM CHLORIDE 250 ML IV SCH (15:00)
[2022-07-31] MEDS ORDERED: ONDANSETRON 4 MG/2 ML VIAL IV PRN (15:12)
[2022-07-31] MEDS ORDERED: POLYETHYLENE GLYCOL 3350 17 GM PACKET PO PRN (15:12)
[2022-07-31] MEDS ORDERED: ACETAMINOPHEN 325 MG TABLET PO PRN (15:12)
[2022-07-31] MEDS ORDERED: UMECLIDINIUM VILANTEROL INHALATION SCH (15:12)
[2022-07-31] MEDS ORDERED: DEXTROSE 31 GM ORAL.SUSP PO PRN (15:12)
[2022-07-31] MEDS ORDERED: POTASSIUM CHLORIDE 20 MEQ TABLET PO PRN ×2 (15:12)
[2022-07-31] MEDS ORDERED: SENNOSIDES 1 TABLET PO PRN (15:12)
[2022-07-31] MEDS ORDERED: MAGNESIUM SULFATE 2 GM/50 ML BAG IV PRN (15:12)
[2022-07-31] MEDS ORDERED: POTASSIUM CHLORIDE 40 MEQ in DEXTROSE 5% IN WATER 500 ML IV PRN (15:12)
[2022-07-31] MEDS ORDERED: IPRATROPIUM/ALBUTEROL 3 ML AMPUL.NEB NEB PRN (15:12)
[2022-07-31] MEDS ORDERED: DEXTROSE 50% 50 ML VIAL IV PRN (15:12)
[2022-07-31] MEDS: INSULIN LISPRO 1 UNIT/0.01 ML UNIT SQ SCH ×2 (18:16→21:24)
[2022-07-31] MEDS: DOCUSATE SODIUM 100 MG CAPSULE PO SCH (20:13)
[2022-07-31] MEDS ORDERED: ATORVASTATIN 40 MG TABLET PO SCH (21:00)
[2022-07-31] MEDS: 0.9 % SODIUM CHLORIDE 10 ML SYRINGE IV SCH (21:25)
[2022-07-31] MEDS ORDERED: NON FORMULARY MEDICATION 1 DOSE MISCELL (Insulin Glargine [Lantus Solostar U-100 Insulin] SUB-Q SCH (21:50)
[2022-08-01] MEDS: 0.9 % SODIUM CHLORIDE 10 ML SYRINGE IV SCH (05:05)
[2022-08-01 06:34] LABS: ALT/SGPT 12 U/L (<40); AST/SGOT 18 U/L (<40); Albumin 3.8 gm/dL (3.2-5.2); Albumin/Globulin Ratio 1.3 (1.0-2.3); Alkaline Phosphatase 69 U/L (39-117); Bilirubin,Direct 0.2 mg/dL (<0.3); Blood Urea Nitrogen 13 mg/dL (8-23); Calcium 8.9 mg/dL (8.6-10.4); Carbon Dioxide 28 mmol/L (22-30); Chloride 97 mmol/L (96-108); Glomerular Filtration Rate 70; Glucose 176 mg/dL (70-105); Lactate Dehydrogenase 210 U/L (135-225); Phosphorous 3.4 mg/dL (2.5-4.5); Triglycerides 74 mg/dL (<150); Uric Acid 4.5 mg/dL (2.5-8.0)
[2022-08-01] MEDS: DOCUSATE SODIUM 100 MG CAPSULE PO SCH (08:35)
[2022-08-01] MEDS: INSULIN LISPRO 1 UNIT/0.01 ML UNIT SQ SCH ×2 (08:49→11:19)
--- NOTE | 2022-08-01 08:54 | Discharge Summary ---
Discharge Provider Provider IMPORTANT FOLLOW-UP INFORMATION FOR PCP: *Stopped lisinopril for potential cause of angioedema, started Norvasc in place of. *patient instructed to monitor blood pressure twice daily and bring log to PCP. Patient information: Note initiated : 08/01/22 at 8:51 am Service Date, if different from initiated Date: [] Patient: William Murillo 66 y/o M admitted on 07/31/22 for Tongue. Chief Complaint: [] Date of admission: 07/31/22 15:14 Discharge date: 08/01/22 Primary care physician: Sheree Knapp Consults: 07/31/22 Consult to Physician [CONS] Stat Comment: Consulting Provider: Igor Michael Reason For Exam: Physician to Consult COURSE Hospital Course Hospital course: History of present illness: Mr. Murillo is a 66 year old M Presents to the ED with tongue swelling for 4 to 5 hours. Patient states he woke up feeling fine and then not too long after breakfast he did start developing swelling of his tongue. It did not have anything unusual for breakfast. He has been on several new medications over the past couple months but those medications were metformin and insulin, no DPP-4 inhibitors. He is on lisinopril and has been on that for years and also takes a baby aspirin each day and been on that for years. Patient denies NSAID use. Patient denies any numbness or tingling in his throat or cheeks or lips but does have significant swelling in his tongue more prominent on the right right half of his tongue. He denies any shortness of breath or coughing. He denies any urticaria or pruritus. Patient was given epinephrine Solu-Medrol and Benadryl in the ED without improvement. He feels like the swelling has evolved some since first arriving in the ED. Given the lack of urticaria and pruritus and lack of response to steroids and histamine it is unlikely to be an IgE/Mast cell mediated reaction and more likely bradykinin from an ARMIDA inhibitor versus less likely acquired C1 esterase inhibitor from the lymphoma. 08/01 Patient did note improvement after the fresh frozen plasma was given and also states felt like at 1 point the swelling was going down into his throat but that is all improved now. A: *Severe angioedema involving the tongue: Likely bradykinin mediated from ACEI -C4 normal *COPD( ): *h/o Diastolic CHF: *h/o CAD s/p CABGX4, stents X2, pacemaker: ASA/BB/Statin *h/o GERD: *HTN/HLD: *Obesity BMI 33.0: *DESTINEY on CKD P: -stop Lisinopril, switched with norvasc Discharge diagnosis: Angioedema suspect bradykinin mediated for medication Secondary discharge diagnosis: COPD history of diastolic heart failure also history of CAD history of GERD hypertension hyperlipidemia obesity Time Spent with Patient Time attestation: Total time spent providing and/or coordinating discharge services: Time spent: Greater than 30 minutes EXAM Constitutional Vitals: Temp Pulse Resp BP Pulse Ox O2 Del Method O2 Flow Rate 97.7 F 58 L 16 175/97 95 1 08/01/22 08:01 08/01/22 08:01 08/01/22 08:01 08/01/22 08:01 08/01/22 08:01 08/01/22 08:01 08/01/22 01:50 Discharge Data Data Completed and Pending Labs on day of discharge: Labs from last 24 hours 08/01/22 07/31/22 07/31/22 05:02 13:10 13:10 WBC RBC Hgb Hct MCV MCH MCHC RDW Plt Count MPV Immature Gran % (Auto) Neut % (Auto) Lymph % (Auto) Wood % (Auto) Eos % (Auto) Baso % (Auto) Lymph # (Auto) Wood # (Auto) Eos # (Auto) Baso # (Auto) Immature Gran # Absolute Neutrophils Sodium 136 138 Potassium 3.9 3.4 Chloride 97 100 Carbon Dioxide 28 26 Anion Gap 11.0 12.0 BUN 13 12 Creatinine 1.1 1.5 H GFR Calculation 70 48 Glucose 176 H 100 Uric Acid 4.5 Calcium 8.9 9.1 Phosphorus 3.4 Magnesium 1.6 Total Bilirubin 1.0 1.1 H Direct Bilirubin 0.2 GGT 19 AST 18 21 ALT 12 13 Alkaline Phosphatase 69 73 Lactate Dehydrogenase 210 Total Protein 6.8 7.3 Albumin 3.8 3.8 Globulin 3.0 3.5 Albumin/Globulin Ratio 1.3 1.1 Triglycerides 74 Complement C4 36.7 07/31/22 13:10 WBC 8.1 RBC 3.54 L Hgb 11.9 L Hct 34.3 L MCV 96.9 MCH 33.6 MCHC 34.7 RDW 12.5 Plt Count 193 MPV 10.2 Immature Gran % (Auto) 0.2 Neut % (Auto) 61.1 Lymph % (Auto) 29.3 Wood % (Auto) 7.0 Eos % (Auto) 1.7 Baso % (Auto) 0.7 Lymph # (Auto) 2.37 Wood # (Auto) 0.57 Eos # (Auto) 0.14 Baso # (Auto) 0.06 Immature Gran # 0.02 Absolute Neutrophils 4.94 Sodium Potassium Chloride Carbon Dioxide Anion Gap BUN Creatinine GFR Calculation Glucose Uric Acid Calcium Phosphorus Magnesium Total Bilirubin Direct Bilirubin GGT AST ALT Alkaline Phosphatase Lactate Dehydrogenase Total Protein Albumin Globulin Albumin/Globulin Ratio Triglycerides Complement C4 Discharge Plan Patient/Caregiver Discharge Instructions Activity: increase activity as tolerated Diet: Cardiac Activity Restrictions/Additional Instructions: Monitor blood pressure twice daily, keep a log and bring to PCP on next visit. Follow-up with PCP in 3 to 7 days. Prescriptions: New amlodipine [Norvasc] 10 mg tablet 10 mg PO QDAY Qty: 30 0RF Continued albuterol sulfate [ProAir HFA] 90 mcg/actuation HFA aerosol inhaler 2 puff INHALATION QID PRN (Reason: Shortness Of Breath) albuterol sulfate 2.5 mg /3 mL (0.083 %) solution for nebulization 2.5 mg INHALATION TID PRN (Reason: Shortness Of Breath) atorvastatin 40 MG tablet 20 mg PO HS aspirin 81 MG tablet,chewable 81 mg PO QDAY metoprolol succinate 25 MG cap,sprinkle,ER 24hr dose pack 25 mg PO QDAY Anoro Ellipta 62.5-25 mcg/actuation blister with device 1 puff INHALATION QDAY (DME) blood-glucose meter [Contour Next EZ Meter] Misc MISCELLANEOUS QID (DME) lancets [Microlet Lancet] Misc MISCELLANEOUS QDAY metformin 1,000 mg tablet 1 tab PO DAILY insulin glargine [Lantus Solostar U-100 Insulin] 100 unit/mL (3 mL) insulin pen 12 unit subcut HS Discontinued lisinopril 40 mg tablet 40 mg PO QDAY Follow Up Plan Follow up with: Sheree Knapp MD [Primary Care Provider] - Patient Disposition: Home, Self-Care Prognosis: Fair Overall status at discharge: patient is progressing back to baseline Discharge Orders: Discharge Order (Routine); Ordered 08/01/22 Ordered By: Igor Michael
[2022-08-01] MEDS ORDERED: METOPROLOL SUCCINATE 25 MG TAB.XL.24H PO SCH (09:00)
[2022-08-01] MEDS ORDERED: amLODIPine 5 MG TABLET PO SCH ×2 (09:00→10:45)
[2022-08-01] MEDS ORDERED: [UNRECOGNIZED DRUG - OTHER] PO SCH (09:00)
[2022-08-01] MEDS ORDERED: ASPIRIN 81 MG PO SCH (09:00)
[2022-08-01] MEDS ORDERED: ASPIRIN 81 MG TAB.CHEW PO SCH (09:00)
[2022-08-01] MEDS ORDERED: UMECLIDINIUM VILANTEROL INHALATION SCH (09:00)
[2022-08-01] MEDS ORDERED: FLU VACC QS2022-23(6MOS UP)/PF 60 MCG/0.5 ML SYRINGE IM ONE (11:30)
[2022-08-01] MEDS ORDERED: PNEUMOCOCCAL 23-VAL P-SAC VAC 0.5 ML SYRINGE IM ONE (11:30)
[2022-08-01] MEDS ORDERED: INSULIN GLARGINE, HUMAN 1 UNIT/0.01 ML SQ SCH (21:00)
== END 2022-08-01 12:35 | disposition home or self-care (01) ==
LOC: ICU 12:49 → ED 12:49 → ICU 15:10
PROVIDERS: ADMIT Internal Medicine; ATTEND Internal Medicine

== ENCOUNTER 2023-11-23 12:34 | Inpatient (IN) ==
[2023-11-23] MEDS ORDERED: IOPAMIDOL 100 ML BOTTLE IV ONE (12:35)
[2023-11-23 13:12] LABS: Basophils # (Auto) 0.02 K/mcL (0.00-0.30); Basophils % (Auto) 0.1 % (0.0-2.0); Eosinophils # (Auto) 0.07 K/mcL (0.00-0.70); Eosinophils % (Auto) 0.4 % (0.0-7.0); Hemoglobin 14.1 g/dL (13.7-17.5); Lymphocytes # (Auto) 1.03 K/mcL (1.50-4.80); Lymphocytes % (Auto) 6.4 % (15.5-49.0); Mean Cell Volume 88.4 fL (80.0-100.0); Mean Corpuscular HGB Conc 33.6 g/dL (31.0-36.0); Mean Platelet Volume 9.5 fL (8.8-12.5); Monocytes # (Auto) 0.77 K/mcL (0.10-0.90); Monocytes % (Auto) 4.8 % (1.0-12.0); Neutrophils % (Auto) 87.7 % (38.0-78.0); Platelet Count 225 K/mcL (140-440); RBC 4.75 M/mcL (4.63-6.08); Red Cell Distribution Width 13.2 % (11.5-14.5); WBC 16.2 K/mcL (4.5-11.0)
[2023-11-23] MEDS: SODIUM CHLORIDE IV ONE (13:19)
[2023-11-23 13:32] LABS: ALT/SGPT 16 U/L (<40); AST/SGOT 23 U/L (<40); Albumin 4.2 gm/dL (3.2-5.2); Albumin/Globulin Ratio 1.3 (1.0-2.3); Alkaline Phosphatase 83 U/L (39-117); Bilirubin,Total 1.6 mg/dL (0.1-1.0); Blood Urea Nitrogen 16 mg/dL (8-23); Calcium 9.2 mg/dL (8.6-10.4); Carbon Dioxide 21 mmol/L (22-30); Chloride 97 mmol/L (96-108); Globulin 3.2 gm/dL (2.2-3.7); Glomerular Filtration Rate 63; Glucose 115 mg/dL (70-105)
[2023-11-23] MEDS: ACETAMINOPHEN 1,000 MG/100 ML BAG IV ONE (14:01)
[2023-11-23] MEDS: AZITHROMYCIN 500 MG in DEXTROSE 5% IN WATER 250 ML IV ONE (14:02)
[2023-11-23] MEDS: ACETAMINOPHEN 325 MG TABLET PO ONE (14:02)
[2023-11-23] MEDS: FAMOTIDINE/PF 20 MG/2 ML VIAL IV ONE (14:22)
[2023-11-23] MEDS: methylPREDNISolone SOD SUCC 40 MG/ML VIAL IV ONE (14:22)
[2023-11-23] MEDS: diphenhydrAMINE 50 MG/ML VIAL IV ONE (14:22)
[2023-11-23] MEDS: CEFEPIME 1 GM VIAL IV ONE (15:26)
[2023-11-23] MEDS: KETOROLAC 15 MG/ML VIAL IV ONE (15:26)
[2023-11-23 16:58] LABS: Appearance,Urine Clear (Clear); Bacteria,Urine 0 /hpf (0); Bilirubin,Urine Negative (Negative); Color,Urine Yellow; Culture Indicated,Urine No; Glucose,Urine (UA) 100 mg/dL (Negative); Ketones,Urine Negative (Negative); Leukocyte Esterase,Urine Negative /uL (Negative); Mucus,Urine Many /hpf; Nitrate,Urine Negative (Negative); Protein,Urine Trace mg/dL (Negative); Specific Gravity,Urine 1.025 (1.000-1.035); Urine Blood Negative ery/mcL (Negative); Urine RBC 0 /hpf (0-3); Urine Squamous Epithelial Cell 0 /hpf (0-4); Urine WBC 2 /hpf (0-4); Urobilinogen,Urine Normal
[2023-11-23] MEDS ORDERED: ONDANSETRON 4 MG/2 ML VIAL IV PRN (18:08)
[2023-11-23] MEDS ORDERED: LACTULOSE 20 GM/30 ML ORAL.SOL PO PRN (18:08)
[2023-11-23] MEDS ORDERED: HYDROcodone/APAP 5/325MG TABLET PO PRN (18:08)
[2023-11-23] MEDS ORDERED: DEXTROSE 50% 50 ML VIAL IV PRN (18:08)
[2023-11-23] MEDS ORDERED: DEXTROSE 31 GM ORAL.SUSP PO PRN (18:08)
[2023-11-23] MEDS ORDERED: SENNOSIDES 1 TABLET PO PRN (18:08)
[2023-11-23] MEDS ORDERED: ACETAMINOPHEN 325 MG TABLET PO PRN (18:08)
[2023-11-23 18:50] LABS: ALT/SGPT 10 U/L (<40); AST/SGOT 18 U/L (<40); Albumin 3.6 gm/dL (3.2-5.2); Albumin/Globulin Ratio 1.3 (1.0-2.3); Alkaline Phosphatase 64 U/L (39-117); Bilirubin,Direct 0.4 mg/dL (<0.3); Bilirubin,Total 1.7 mg/dL (0.1-1.0); Blood Urea Nitrogen 18 mg/dL (8-23); Carbon Dioxide 21 mmol/L (22-30); Chloride 101 mmol/L (96-108); Globulin 2.7 gm/dL (2.2-3.7); Glomerular Filtration Rate 63; Glucose 126 mg/dL (70-105); Lactate Dehydrogenase 199 U/L (135-225); Phosphorous 3.5 mg/dL (2.5-4.5); Triglycerides 95 mg/dL (<150); Uric Acid 4.2 mg/dL (2.5-8.0)
[2023-11-23] MEDS: IPRATROPIUM/ALBUTEROL 3 ML AMPUL.NEB NEB SCH (19:30)
[2023-11-23] MEDS: MAGNESIUM SULFATE 2 GM/50 ML BAG IV ONE (19:46)
[2023-11-23] MEDS: DOCUSATE SODIUM 100 MG CAPSULE PO SCH (20:21)
[2023-11-23] MEDS: ATORVASTATIN 40 MG TABLET PO SCH (20:26)
[2023-11-23] MEDS: INSULIN LISPRO 1 UNIT/0.01 ML UNIT SQ SCH (20:33)
[2023-11-23] MEDS: CEFEPIME 2 GM VIAL IV SCH (21:11)
[2023-11-23] MEDS: 0.9 % SODIUM CHLORIDE 10 ML SYRINGE IV SCH (21:12)
[2023-11-24 06:25] LABS: ALT/SGPT 10 U/L (<40); AST/SGOT 21 U/L (<40); Albumin 3.5 gm/dL (3.2-5.2); Albumin/Globulin Ratio 1.1 (1.0-2.3); Alkaline Phosphatase 63 U/L (39-117); Bilirubin,Direct 0.3 mg/dL (<0.3); Bilirubin,Total 1.6 mg/dL (0.1-1.0); Blood Urea Nitrogen 19 mg/dL (8-23); Calcium 8.7 mg/dL (8.6-10.4); Carbon Dioxide 21 mmol/L (22-30); Chloride 102 mmol/L (96-108); Globulin 3.1 gm/dL (2.2-3.7); Glomerular Filtration Rate 89; Glucose 141 mg/dL (70-105); Lactate Dehydrogenase 233 U/L (135-225); Phosphorous 2.7 mg/dL (2.5-4.5); Triglycerides 70 mg/dL (<150); Uric Acid 3.7 mg/dL (2.5-8.0)
[2023-11-24 07:27] LABS: Basophils # (Auto) 0.07 K/mcL (0.00-0.30); Basophils % (Auto) 0.2 % (0.0-2.0); Eosinophils # (Auto) 0 K/mcL (0.00-0.70); Eosinophils % (Auto) 0 % (0.0-7.0); Hematocrit 40.5 % (40.1-51.0); Hemoglobin 13.2 g/dL (13.7-17.5); Lymphocytes # (Auto) 1.87 K/mcL (1.50-4.80); Mean Cell Volume 91.6 fL (80.0-100.0); Mean Corpuscular HGB Conc 32.6 g/dL (31.0-36.0); Mean Platelet Volume 9.8 fL (8.8-12.5); Monocytes # (Auto) 1.84 K/mcL (0.10-0.90); Monocytes % (Auto) 5.9 % (1.0-12.0); Neutrophils % (Auto) 83.2 % (38.0-78.0); Platelet Count 189 K/mcL (140-440); RBC 4.42 M/mcL (4.63-6.08); Red Cell Distribution Width 14.1 % (11.5-14.5); WBC 31.2 K/mcL (4.5-11.0)
[2023-11-24] MEDS ORDERED: DEXAMETHASONE 10 MG/ML VIAL IV SCH (09:00)
[2023-11-24] MEDS ORDERED: REMDESIVIR 200 MG in 0.9 % SODIUM CHLORIDE 250 ML IV ONE (09:00)
[2023-11-24] MEDS: AZITHROMYCIN 500 MG in DEXTROSE 5% IN WATER 250 ML IV SCH (09:59)
[2023-11-24] MEDS: ENOXAPARIN 40 MG/0.4 ML SYRINGE SQ SCH (10:00)
[2023-11-24] MEDS: LEVOFLOXACIN 750 MG/150 ML BAG IV SCH (11:23)
[2023-11-24] MEDS: TAMSULOSIN 0.4 MG CAPSULE PO SCH (20:06)
[2023-11-24] MEDS: ATORVASTATIN 40 MG TABLET PO SCH (20:06)
[2023-11-25] MEDS: ALBUTEROL SULFATE 2.5 MG/3 ML NEBULIZER NEB PRN (05:25)
[2023-11-25 06:20] LABS: Basophils # (Auto) 0.03 K/mcL (0.00-0.30); Basophils % (Auto) 0.2 % (0.0-2.0); Eosinophils # (Auto) 0.08 K/mcL (0.00-0.70); Eosinophils % (Auto) 0.4 % (0.0-7.0); Hematocrit 38.5 % (40.1-51.0); Hemoglobin 12.5 g/dL (13.7-17.5); Lymphocytes # (Auto) 2.28 K/mcL (1.50-4.80); Lymphocytes % (Auto) 11.8 % (15.5-49.0); Mean Cell Volume 91.2 fL (80.0-100.0); Mean Corpuscular HGB Conc 32.5 g/dL (31.0-36.0); Mean Platelet Volume 9.6 fL (8.8-12.5); Monocytes # (Auto) 1.16 K/mcL (0.10-0.90); Platelet Count 194 K/mcL (140-440); RBC 4.22 M/mcL (4.63-6.08); Red Cell Distribution Width 13.9 % (11.5-14.5); WBC 19.3 K/mcL (4.5-11.0)
[2023-11-25 06:34] LABS: ALT/SGPT 9 U/L (<40); AST/SGOT 19 U/L (<40); Albumin 3.6 gm/dL (3.2-5.2); Albumin/Globulin Ratio 1.2 (1.0-2.3); Alkaline Phosphatase 64 U/L (39-117); Bilirubin,Direct 0.3 mg/dL (<0.3); Bilirubin,Total 1.2 mg/dL (0.1-1.0); Blood Urea Nitrogen 16 mg/dL (8-23); Calcium 8.9 mg/dL (8.6-10.4); Carbon Dioxide 24 mmol/L (22-30); Chloride 103 mmol/L (96-108); Globulin 3.1 gm/dL (2.2-3.7); Glomerular Filtration Rate 89; Glucose 125 mg/dL (70-105); Lactate Dehydrogenase 194 U/L (135-225); Phosphorous 2.1 mg/dL (2.5-4.5); Triglycerides 128 mg/dL (<150); Uric Acid 3.7 mg/dL (2.5-8.0)
[2023-11-25] MEDS ORDERED: REMDESIVIR 100 MG in 0.9 % SODIUM CHLORIDE 250 ML IV SCH (09:00)
[2023-11-25] MEDS: ASPIRIN 81 MG TAB.CHEW PO SCH (09:10)
[2023-11-25] MEDS: METOPROLOL SUCCINATE 25 MG TAB.XL.24H PO SCH (09:10)
[2023-11-25] MEDS: PNEUMOCOCCAL 23-VAL P-SAC VAC 0.5 ML SYRINGE IM ONE (11:29)
[2023-11-25] MEDS: FLUZONE HD QS2023-24/PF 240 MCG/0.7 ML SYRINGE IM ONE (11:29)
[2023-11-27] MEDS ORDERED: FLUZONE QUAD QS2023-24/PF 60 MCG/0.5 ML SYRINGE IM ONE (09:00)
[2023-11-27] MEDS ORDERED: PNEUMOCOCCAL 23-VAL P-SAC VAC 0.5 ML SYRINGE IM ONE (09:00)
[2023-11-27] MEDS ORDERED: FLUZONE HD QS2023-24/PF 240 MCG/0.7 ML SYRINGE IM ONE (09:00)
== END 2023-11-25 13:25 | disposition home or self-care (01) | DRG 871 ==
LOC: ED 12:34 → ICU 18:00
PROVIDERS: ADMIT Internal Medicine; ATTEND Internal Medicine